=== PATIENT | female | born 1955 | race Caucasian/White ===

== ENCOUNTER → 2017-11-18 11:19 | Outpatient (CLI) | payer BC, SELFPAY ==
[2017-11-18 12:05] LABS: Absolute Lymphocyte Count 1.39 X10^3/ul (0.83-4.51); Absolute Neutrophil Count 2.9 X10^3/uL (2.0-7.7); Basophil# 0.04 X10^3/uL; Basophil% 0.8 % (0-1); Eosinophil# 0.15 X10^3/uL; Hematocrit 38.2 % (37-47); Hemoglobin 12.1 g/dl (12.0-15.0); Lymphocyte # 1.39 X10^3/ul (4.0); Lymphocyte % 27.8 % (19-41); Mean Corp Hgb Conc 31.7 g/gl (32-36); Mean Corpuscular Hgb 28.5 pg (27.0-32.0); Mean Corpuscular Volume 89.9 fL (81-99); Mean Platelet Vol. 9.6 fl (6.2-12.0); Monocyte# 0.56 X10^3/uL; Monocyte% 11.2 % (0-10); Neutrophil # 2.85 X10^3/uL (2.7-7.7); Platelet Count 421 K/mm3 (150-450); RBC Distribution Width SD 48.3 fl (35.1-43.9); Red Blood Count 4.25 M/mm3 (4.2-5.4)
[2017-11-18 12:08] LABS: POSITIVE COUNT NO; POSITIVE DIFFERENTIAL NO; POSITIVE MORPHOLOGY NO
[2017-11-18 12:44] LABS: Vitamin D,25 Hydroxy 51.8 ng/mL (29.95-100.01)
[2017-11-18 12:57] LABS: ALB/GLOB Ratio 0.9 RATIO (0.9-2.4); AST(SGOT) 22 U/L (15-37); Alanine Aminotransfer ALT/SGPT 26 U/L (13-56); Albumin, Serum 3.6 g/dL (3.2-5.0); Alkaline Phosphatase 136 U/L (45-117); Anion Gap 8 (5-15); BUN 17 mg/dL (7-18); BUN/Creat Ratio 22.7 RATIO (10-20); Calcium,Total 8.7 mg/dL (8.5-10.1); Chloride 109 mmol/L (98-107); Creatinine, Serum 0.75 mg/dL (0.55-1.02); EST Glomerular Filtration Rate 84 mL/min (>60); Est Glom Filt Rate - Afr Amer 101 mL/min (>60); Globulin 4.1 g/dL (2.2-4.2); Glucose 47 mg/dL (74-106); Potassium 4.2 mmol/L (3.5-5.1); Protein, Total 7.7 g/dL (6.4-8.2); Sodium Level 143 mmol/L (136-145); Thyroid Stim Hormone (TSH) 2.59 uIU/mL (0.358-3.74)
[2017-11-19 14:24] LABS: Hep C Antibodies 0.1 s/co ratio (0.0-0.9)
== END ==
PROVIDERS: Family Provider Family Medicine Geriatric Medicine; PCP Family Medicine Geriatric Medicine; Visit Provider Family Medicine Geriatric Medicine
DX: Z13.89 Encounter for screening for other disorder (principal)
CPT/HCPCS: 36415; 80053; 82306; 84443; 85025; 86803

== ENCOUNTER → 2017-12-26 13:24 | Outpatient (CLI) | payer BC, SELFPAY ==
[2017-12-31 09:03] LABS: HPV Reflexed? NOT INDICATED
== END ==
PROVIDERS: Visit Provider Obstetrics & Gynecology
DX: Z01.419 Encounter for gynecological examination (general) (routine) without abnormal findings (principal)
CPT/HCPCS: 88175; G0145

== ENCOUNTER → 2018-12-18 15:18 | Outpatient (CLI) | payer OTHER, SELFPAY ==
[2017-08-14 10:25] VITALS: BMI 26.2
[2018-12-18 17:43] LABS: Absolute Lymphocyte Count 2.08 X10^3/ul (0.83-4.51); Absolute Neutrophil Count 4.6 X10^3/uL (2.0-7.7); Basophil# 0.04 X10^3/uL; Basophil% 0.5 % (0-1); Eosinophil# 0.12 X10^3/uL; Eosinophils% 1.5 % (0-5); Hematocrit 37.9 % (37-47); Hemoglobin 11.8 g/dl (12.0-15.0); Lymphocyte # 2.08 X10^3/ul (4.0); Lymphocyte % 26.2 % (19-41); Mean Corp Hgb Conc 31.1 g/gl (32-36); Mean Corpuscular Hgb 25.9 pg (27.0-32.0); Mean Corpuscular Volume 83.1 fL (81-99); Mean Platelet Vol. 9.7 fl (6.2-12.0); Monocyte# 1.05 X10^3/uL; Monocyte% 13.2 % (0-10); Neutrophil # 4.63 X10^3/uL (2.7-7.7); Neutrophil % 58.2 % (47-70); Platelet Count 415 K/mm3 (150-450); RBC Distribution Width CV 17.7 % (11.6-14.6); RBC Distribution Width SD 54.1 fl (35.1-43.9); Red Blood Count 4.56 M/mm3 (4.2-5.4)
[2018-12-18 18:02] LABS: POSITIVE COUNT NO; POSITIVE DIFFERENTIAL NO; POSITIVE MORPHOLOGY NO
[2018-12-18 18:13] LABS: Vitamin D,25 Hydroxy 37.3 ng/mL (29.95-100.01)
[2018-12-18 18:31] LABS: AST(SGOT) 26 U/L (15-37); Alanine Aminotransfer ALT/SGPT 35 U/L (13-56); Albumin, Serum 3.8 g/dL (3.2-5.0); Alkaline Phosphatase 146 U/L (45-117); Anion Gap 7 (5-15); BUN 17 mg/dL (7-18); BUN/Creat Ratio 18.8 RATIO (10-20); Chloride 109 mmol/L (98-107); EST Glomerular Filtration Rate 67 mL/min (>60); Est Glom Filt Rate - Afr Amer 81 mL/min (>60); Glucose 70 mg/dL (74-106); Potassium 5.2 mmol/L (3.5-5.1); Protein, Total 7.8 g/dL (6.4-8.2); Sodium Level 142 mmol/L (136-145)
== END ==
PROVIDERS: Family Provider Family Medicine Geriatric Medicine; PCP Family Medicine Geriatric Medicine; Visit Provider Family Medicine Geriatric Medicine
DX: E55.9 Vitamin D deficiency, unspecified (principal); R53.83 Other fatigue
CPT/HCPCS: 36415; 80053; 82306; 84443; 85025

== ENCOUNTER → 2019-04-10 11:32 | Outpatient (CLI) | payer OTHER, SELFPAY ==
--- NOTE | 2019-04-10 11:55 | EKG12_ITS ---
Test Reason : PRE-OP Blood Pressure : / mmHG Vent. Rate : 079 BPM Atrial Rate : 079 BPM P-R Int : 172 ms QRS Dur : 080 ms QT Int : 396 ms P-R-T Axes : 064 012 -06 degrees QTc Int : 454 ms Normal sinus rhythm Nonspecific ST abnormality Abnormal ECG Confirmed by ARSLAN BERMEO, LUCIEN ([id number]), business editor TONO SANABRIA ([id number]) on 04/13/2019 12:00:14 PM Referred By: Thanh Chong Confirmed By:LUCIEN MCDANIELS MD
[2019-04-10 12:42] LABS: Absolute Lymphocyte Count 1.36 X10^3/uL (0.83-4.51); Absolute Neutrophil Count 5.4 X10^3/uL (2.0-7.7); Basophil# 0.06 X10^3/uL; Basophil% 0.8 % (0-1); Eosinophils% 1.3 % (0-5); Hematocrit 41.7 % (37-47); Hemoglobin 13.2 g/dL (12.0-15.0); Lymphocyte # 1.36 X10^3/ul (4.0); Lymphocyte % 17.9 % (19-41); Mean Corp Hgb Conc 31.7 g/dL (32-36); Mean Corpuscular Hgb 27.9 pg (27.0-32.0); Mean Corpuscular Volume 88.2 fL (81-99); Mean Platelet Vol. 9.6 fl (6.2-12.0); Monocyte# 0.66 X10^3/uL; Monocyte% 8.7 % (0-10); NRBC Flagged by Analyzer 0 % (0-5); Neutrophil # 5.38 X10^3/uL (2.7-7.7); Neutrophil % 70.9 % (47-70); Platelet Count 336 K/mm3 (150-450); RBC Distribution Width CV 15.7 % (11.6-14.6); RBC Distribution Width SD 50.9 fl (35.1-43.9); Red Blood Count 4.73 M/mm3 (4.2-5.4); White Blood Count 7.6 K/mm3 (4.4-11.0)
[2019-04-10 13:16] LABS: Anion Gap 8 (5-15); BUN 15 mg/dL (7-18); BUN/Creat Ratio 19.7 RATIO (10-20); Calcium,Total 8.9 mg/dL (8.5-10.1); Chloride 112 mmol/L (98-107); Creatinine, Serum 0.76 mg/dL (0.55-1.02); EST Glomerular Filtration Rate 82 mL/min (>60); Est Glom Filt Rate - Afr Amer 99 mL/min (>60); Glucose 85 mg/dL (74-106); Potassium 4.4 mmol/L (3.5-5.1); Sodium Level 143 mmol/L (136-145)
== END ==
PROVIDERS: Family Provider Family Medicine Geriatric Medicine; PCP Family Medicine Geriatric Medicine; Referring Provider Specialist; Visit Provider Specialist
DX: Z01.818 Encounter for other preprocedural examination (principal); Z01.810 Encounter for preprocedural cardiovascular examination
CPT/HCPCS: 36415; 80048; 85025; 93005

== ENCOUNTER 2019-06-25 10:00 | Outpatient (RCR) | payer OTHER, SELFPAY ==
--- NOTE | 2019-06-10 09:56 | HP.OTEVAL ---
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 Date of Evaluation: 05/25/19 Occupational Therapist: Devorah Martinez, JOSE/Terrance, CHT - Subjective Subjective: This 63 year old female was. sx was completed on 04/24/19 pt had left CMC arthroplasty completed 4 weeks 3 days sx post. pt returns to dr. Irizarry . Pt states she is unable to perform her ADLs and IADLS at her PLOF and would like to return to being Ind. with ADLs and IADLs - ADLs Dressing: Pants, Socks, Shoes Fasteners: Tie shoes, Buttons, Zippers, [place] Comments: is helping with ADLs Eating: Use silverware Bathing: Handle washcloth & soap, Wash hair, Squeeze shampoo bottle Toileting: Manage clothing Grooming: Curling iron, Comb hair, Squeeze toothpaste on Kitchen: Chop with knife, Peel fruits & vegetables, Open jars, Open bottle caps, Take dish out of oven, Load/unload jalousies installer, Place dish in microwave Comments: is assisting with tasks Household: Vacuum, Laundry Comments: is hleping - Pain left hand 0 Pain Intensity Range: 0, 9 - ROM Wrist: right 60/60 left 60/35 CMC: right 20 left 15 MP: right 20 left 20 IP: right 40 left 40 Radial Abduction: right 30 left 40 - Strength Human Resources Hr Generalist: right 63# left NT Lateral Pinch: right NT left NT Strength Comments: pinch was not tested due - Sensation Sensation Comments: denies - Quick DASH-Disab of Arm,Shoulder& Hand Quick DASH Score: 72.7250 - Goals Goal:100% adherence to protocol: Yes Comment: CMC arthroplasty Goal:Daily scar massage when approriate: Yes Goal:ROM equal to unaffected hand: Yes Goal:Human Resources Hr Generalist/Pinch strength at least 75% of unaffected hand: Yes Goal:No pain with affected hand use: Yes Goal:Full use of affected hand in daily activities including: Yes Goal:Improvement in sensation documented by Gove-Rimma: Yes Goal:Decrease scar hypersensitivity: Yes - Rehabilitation General Assessment: pt s/p left CMC arthroplasty. pt is demonstrating a decrease in left hand use with ADls and IADLS due to limited ROM, strength and pain. Pt would benefit from skilled OT services 1-2 xweek for 6 weeks to return pt to PLOF with her ADLS and IADls. Today therapsit so. custom orthosis for left cmc - to provide support and protection while pt is healing. Therapist ed. pt on use, care and precautions. Therapist ed. pt on edema control, ROM and supported CMC with MP and IP ROM. Pt demonstrated understanding and agree to POC. Rehabilitation Potential: Good - Anticipated Interventions Anticipated Interventions: A/AAROM/PROM, Strengthening, Triggerpoint Release, Desensitization, Modalities, Orthoses, Joint Protection/Energy Conservation - Visit Plan Frequency: 1-2x /Week Duration: 2 Months General Plan: follow CMC protocol at pt tolerates TEXT: Thank you for the opportunity to evaluate your patient. For Medicare and Medicare HMO plans, please review the plan of care and approve it. It will need to be FAXED BACK to us at [phone] for Medicare purposes. Please let me know if there are questions or concerns regarding this plan of care. Physician Signature: Date:
--- NOTE | 2019-10-05 16:19 | HP.OT.NRP ---
HP - Discharge Summary - Patient Information SELVIN ARRINGTON was seen in my office for initial evaluation on 05/25/19. The following Plan of Care was established for this patient: Initial Frequency: 1-2x /Week Initial Duration: 2 Months Plan: return in two weeks - Anticipated Interventions Anticipated Interventions: A/AAROM/PROM, Strengthening, Triggerpoint Release, Desensitization, Modalities, Orthoses, Joint Protection/Energy Conservation This patient was last seen in our office 06/25/19. Pertinent comments regarding their Occupational therapy will appear below: pt was seen for 2 visits. pt cancelled her last scheduled apt and has not reschedled at this time. Pt d/c due to time lapse in care. At this point I will be discontinuing this patient from occupational therapy. I would be happy to see this patient again in the future if found appropriate by the physician. Thank you! Devorah Martinez, OTR/L, CHT
== END 2019-06-25 19:00 | disposition home or self-care (01) ==
LOC: OT 10:00
PROVIDERS: Family Provider Family Medicine Geriatric Medicine; PCP Family Medicine Geriatric Medicine; Referring Provider Physician Assistant Surgical; Visit Provider Physician Assistant Surgical
DX: M18.12 Unilateral primary osteoarthritis of first carpometacarpal joint, left hand (principal)
CPT/HCPCS: 97110; 97166; 97760

== ENCOUNTER → 2019-12-21 15:46 | Outpatient (CLI) | payer OTHER, SELFPAY ==
[2017-08-14 10:25] VITALS: BMI 26.2
[2019-12-21 16:22] LABS: Absolute Lymphocyte Count 1.61 X10^3/uL (0.83-4.51); Absolute Neutrophil Count 5.1 X10^3/uL (2.0-7.7); Basophil# 0.06 X10^3/uL; Basophil% 0.8 % (0-1); Eosinophil# 0.11 X10^3/uL; Eosinophils% 1.4 % (0-5); Hematocrit 42.9 % (37-47); Hemoglobin 13.9 g/dL (12.0-15.0); Lymphocyte # 1.61 X10^3/ul (4.0); Lymphocyte % 20.4 % (19-41); Mean Corp Hgb Conc 32.4 g/dL (32-36); Mean Corpuscular Hgb 29.3 pg (27.0-32.0); Mean Corpuscular Volume 90.5 fL (81-99); Mean Platelet Vol. 9.4 fl (6.2-12.0); Monocyte# 0.95 X10^3/uL; NRBC Flagged by Analyzer 0 % (0-5); Neutrophil # 5.14 X10^3/uL (2.7-7.7); Platelet Count 342 K/mm3 (150-450); RBC Distribution Width SD 49.9 fl (35.1-43.9); Red Blood Count 4.74 M/mm3 (4.2-5.4); White Blood Count 7.9 K/mm3 (4.4-11.0)
[2019-12-21 16:44] LABS: Vitamin D,25 Hydroxy 52.7 ng/mL
[2019-12-21 16:51] LABS: ALB/GLOB Ratio 0.9 RATIO (0.9-2.4); AST(SGOT) 27 U/L (15-37); Alanine Aminotransfer ALT/SGPT 35 U/L (13-56); Albumin, Serum 3.7 g/dL (3.2-5.0); Alkaline Phosphatase 159 U/L (45-117); Anion Gap 7 (5-15); BUN 14 mg/dL (7-18); BUN/Creat Ratio 17.2 RATIO (10-20); Calcium,Total 8.9 mg/dL (8.5-10.1); Chloride 111 mmol/L (98-107); Creatinine, Serum 0.82 mg/dL (0.55-1.02); EST Glomerular Filtration Rate 75 mL/min (>60); Est Glom Filt Rate - Afr Amer 91 mL/min (>60); Globulin 4.2 g/dL (2.2-4.2); Glucose 90 mg/dL (74-106); Potassium 4.5 mmol/L (3.5-5.1); Protein, Total 7.9 g/dL (6.4-8.2); Sodium Level 139 mmol/L (136-145); Thyroid Stim Hormone (TSH) 2.36 uIU/mL (0.358-3.74)
== END ==
PROVIDERS: PCP Family Medicine Geriatric Medicine; Visit Provider Family Medicine Geriatric Medicine
DX: E55.9 Vitamin D deficiency, unspecified (principal); R53.83 Other fatigue
CPT/HCPCS: 36415; 80053; 82306; 84443; 85025

== ENCOUNTER 2020-10-28 08:03 | Outpatient (RCR) | payer OTHER, SELFPAY ==
[2017-08-14 10:25] VITALS: BMI 26.2
[2020-10-28] MEDS: COVID-19 VACC, MRNA(PFIZER)/PF 30 MCG/0.3 ML SYRINGE IM (16:23)
[2020-11-18] MEDS: COVID-19 VACC, MRNA(PFIZER)/PF 30 MCG/0.3 ML SYRINGE IM (16:01)
== END 2021-01-24 23:59 ==
LOC: IMMUN 08:03
PROVIDERS: PCP Family Medicine Geriatric Medicine; Visit Provider Family Medicine
DX: Z23 Encounter for immunization (principal)
CPT/HCPCS: 0001A; 0002A; 91300

== ENCOUNTER → 2022-01-10 | Outpatient (CLI) | payer MEDICARE, OTHER, SELFPAY ==
[2022-01-10 16:31] LABS: Absolute Lymphocyte Count 1.38 X10^3/uL (0.83-4.51); Absolute Neutrophil Count 4.8 X10^3/uL (2.0-7.7); Basophil# 0.06 X10^3/uL; Basophil% 0.8 % (0-1); Eosinophil# 0.11 X10^3/uL; Eosinophils% 1.5 % (0-5); Hematocrit 38.4 % (37-47); Hemoglobin 12.4 g/dL (12.0-15.0); Lymphocyte # 1.38 X10^3/ul (0.83-4.51); Lymphocyte % 19.4 % (19-41); Mean Corp Hgb Conc 32.3 g/dL (32-36); Mean Corpuscular Hgb 28.2 pg (27.0-32.0); Mean Corpuscular Volume 87.5 fL (81-99); Mean Platelet Vol. 9.4 fl (6.2-12.0); Monocyte# 0.72 X10^3/uL; Monocyte% 10.1 % (0-10); NRBC Flagged by Analyzer 0 % (0-5); Neutrophil # 4.84 X10^3/uL (2.7-7.7); Neutrophil % 67.9 % (47-70); Platelet Count 346 K/mm3 (150-450); RBC Distribution Width CV 14.3 % (11.6-14.6); RBC Distribution Width SD 45.8 fl (35.1-43.9); Red Blood Count 4.39 M/mm3 (4.2-5.4); White Blood Count 7.1 K/mm3 (4.4-11.0)
[2022-01-10 17:03] LABS: AST(SGOT) 22 U/L (15-37); Alanine Aminotransfer ALT/SGPT 38 U/L (13-56); Albumin, Serum 3.7 g/dL (3.2-5.0); Alkaline Phosphatase 130 U/L (45-117); Anion Gap 5 (5-15); BUN 18 mg/dL (7-18); Calcium,Total 9.1 mg/dL (8.5-10.1); Chloride 108 mmol/L (98-107); Creatinine, Serum 0.78 mg/dL (0.55-1.02); EST Glomerular Filtration Rate 78 mL/min (>60); Est Glom Filt Rate - Afr Amer 95 mL/min (>60); Globulin 3.8 g/dL (2.2-4.2); Glucose 107 mg/dL (74-106); Potassium 4.8 mmol/L (3.5-5.1); Protein, Total 7.5 g/dL (6.4-8.2); Sodium Level 138 mmol/L (136-145)
== END | disposition home or self-care (01) ==
LOC: BIMLAB 16:09
PROVIDERS: PCP Internal Medicine; Referring Provider Internal Medicine; Visit Provider Internal Medicine
DX: K21.9 Gastro-esophageal reflux disease without esophagitis (principal); F41.8 Other specified anxiety disorders
CPT/HCPCS: 36415; 80053; 85025

== ENCOUNTER → 2022-01-30 | Outpatient (CLI) | payer MEDICARE, OTHER, SELFPAY ==
--- NOTE | 2022-01-30 15:59 | BI_ITS ---
MAMMOGRAPHY - BILATERAL SCREENING REASON FOR EXAM: Female, 66 years old. Routine annual screening examination. PERTINENT HISTORY: Non-contributory. Remote right ultrasound-guided breast biopsy. TECHNIQUE: Digital bilateral breast mahi (3D mammographic acquisition) in the CC and MLO projections. 2-D mediolateral oblique (MLO) and craniocaudad (CC) views of both breasts were obtained. CAD: Full Field Digital Mammography with Computer Added Detection was performed. COMPARISON: Comparison is made with prior study dated 12/06/2016 and 04/21/2014. FINDINGS: Breast Composition: The breasts are heterogeneously dense, which may obscure small masses. There is a 2.6 cm x 3.2 cm well-defined nodule in the upper mid slightly medial aspect of the right breast. A tissue clip marker is seen within it. This has decreased slightly in size as compared to prior study. No other significant abnormalities are identified. There has been no significant change since the prior study. BI/SCRN MAMM (CAD)W/MAHI BILAT IMPRESSION: Stable bilateral screening mammogram. Yearly follow-up mammogram recommended. (A) ASSESSMENT CATEGORY: BIRADS Category 2: Benign. A letter regarding these results will be sent to the patient by the facility within 30 days. Approximately 10% of breast cancers are not detected by mammography. A normal mammogram should not delay biopsy of a clinically suspicious abnormality. [id number] Electronically Signed: Tony Castillo MD at 8:08 EDT ,
--- NOTE | 2022-01-30 16:04 | BD_ITS ---
STUDY: DUAL ENERGY X-RAY ABSORPTIOMETRY / DXA REASON FOR EXAM: Female, 66 years old. Osteopenia TECHNIQUE: Bone Mineral Density (BMD) measurements of lumbar spine and bilateral hips were obtained. COMPARISON: Comparison is made with prior study dated 12/06/2016. FINDINGS: Lumbar Spine (L1-L4): g/cm2 (0.777) / T-score (-2.9) / Z-score (-1.1) Findings are suggestive of osteoporosis with a high fracture risk. Left Femur Total: g/cm2 (0.754) / T-score (-1.5) / Z-score (-0.3) Left Femoral Neck: g/cm2 (0.566) / T-score (-2.6) / Z-score (-1.0) Right Femur Total: g/cm2 (0.708) / T-score (-1.9) / Z-score (-0.7) Right Femoral Neck: g/cm2 (0.588) / T-score (-2.3) / Z-score (-0.8) The T-Scores on the most recent prior examination were: Lumbar Spine (L1-L4): There has been worsening of bone density since the previous examination. Left Femur Total: which represents an improvement of 5.9%. Right Femur Total: which represents an improvement of 4.2%. BD/Dexa Bone Density Study IMPRESSION: The patient is considered osteoporotic as outlined below according to World Ector Organization (WHO) criteria with a high fracture risk. There has been improvement of bone density since the previous examination. Reference Information: The T-score is the number of standard deviations above or below the standard which is normal for young adults at their peak bone mineral density. The World Health Organization (WHO) interprets the T-scores as follows: Above -1 Normal bone density Between -1 and -2.5 Osteopenia Equal to / or below -2.5 Osteoporosis As a practical clinical guideline, osteopenia may be graded as follows: Mild -1 through -1.5 Moderate -1.6 through -2.0 Severe -2.1 through -2.4 The Z-score is the number of standard deviations above or below age-matched controls. A Z-score of less than -1.5 would be considered abnormal. References: 1. NIH Osteoporosis and Related Bone Diseases www osteo.org 2. International Society for Clinical Densitometry www iscd.org 3. National Osteoporosis Foundation www nof.org Electronically Signed: Tony Castillo MD at 10:37 EDT ,
== END | disposition home or self-care (01) ==
LOC: OPBD 15:58
PROVIDERS: PCP Internal Medicine; Visit Provider Internal Medicine
DX: Z78.0 Asymptomatic menopausal state (principal); M85.80 Other specified disorders of bone density and structure, unspecified site; Z12.31 Encounter for screening mammogram for malignant neoplasm of breast
CPT/HCPCS: 77063; 77067; 77080

== ENCOUNTER → 2022-03-02 | Outpatient (CLI) | payer MEDICARE, OTHER, SELFPAY ==
[2022-03-02] MEDS: 0.9% NaCl IVPB Med Flush (250 mL) 15 ML IV (13:52)
[2022-03-02] MEDS: 0.9% NaCl Peripheral Flush Adult/Peds IV (13:52)
[2022-03-02] MEDS: Zoledronic Acid 5 MG 100 ML 300 MG IV (13:53)
[2022-03-02 14:00] VITALS: BP 117/83; PULSE 79; RESP 16; TEMP 36.7; O2SAT 92
== END | disposition home or self-care (01) ==
PROVIDERS: PCP Internal Medicine; Referring Provider Internal Medicine; Visit Provider Internal Medicine
DX: M81.0 Age-related osteoporosis without current pathological fracture (principal)
CPT/HCPCS: 96365; J7050; A4216; J3489

== ENCOUNTER 2022-05-24 08:44 | Day surgery (SDC) | payer MEDICARE, OTHER, SELFPAY ==
[2022-05-24] VITALS (7 sets, daily range): BP systolic 103–121; BP diastolic 63–80; PULSE 91–100; RESP 16–18; TEMP 36.7–37.2; O2SAT 99–100; BMI 34.7
--- NOTE | 2022-05-24 | ESO_PTH ---
PATIENT: SELVIN ARRINGTON LOC: EN U#:[id number] AGE/SX: 66/F ROOM: RE05/24/[address]: Dr. Dillan Gracia DO : 1955 BED: DIS: 05/24/2022 SPEC #: [id number] RECD: 05/24/22 12:50 STATUS: THERESE RELaureano #: [id number] FIDEL: 05/24/22 00:[address]: Dillan Gracia DEPT: SURGICAL PATHOLOGY RECD BY: Flako Mckee ENTERED: 05/24/22 12:51 SP TYPE: ZELDA DAMON DR: Dr. Alma Rosa Coto MD Tissues: A - Esophagus, NOS B - Gastric mucous membrane C - Ileum, NOS Procedures: Surgery Specimen Level IV HEADER OPERATION: Colonoscopy with biopsy, EGD with biopsy ([facility] [place]) PRE-OP DIAGNOSIS: GERD, positive colorectal cancer screening TISSUE SUBMITTED: A ? Distal esophagus, B ? Anastomosis, C ? Terminal ileum MICROSCOPIC DIAGNOSIS A. Distal esophagus, biopsy: Fragments of benign squamous mucosa. B. Anastomotic site, biopsy: Mild glandular distortion. No evidence of inflammation. C. Terminal ileum, biopsy: No pathologic change. AM:nikolai 05/25/2022 MICROSCOPIC DESCRIPTION Slides are reviewed. GROSS DESCRIPTION A - Received in fixative is one container labeled with the patient's name and designated distal esophagus. The specimen consists of two irregular fragments of light barrow soft tissue that in aggregate measure 0.6 x 0.4 x 0.1 cm. The specimen is totally submitted in one cassette. B - Received in fixative is one container labeled with the patient's name and designated anastomosis. The specimen consists of two irregular fragments of light barrow soft tissue that in aggregate measure 0.8 x 0.4 x 0.1 cm. The specimen is totally submitted in one cassette. C - Received in fixative is one container labeled with the patient's name and designated terminal ileum. The specimen consists of one irregular fragment of light barrow soft tissue that measures 0.5 x 0.4 x 0.1 cm. The specimen is totally submitted in one cassette. / MARGE:nikolai 05/24/2022 TC:5 CPT: 25027 x3
[2022-05-24] MEDS: Lactated Ringers 1,000 ML 15 ML IV (09:10)
--- NOTE | 2022-05-24 09:14 | HP.PCM_ITS ---
History and Physical Date of Admission: 05/24/22 SELVIN ARRINGTON, is a 66 F who presents to the office today for GERD and positive Cologuard GERD --on his tree of GERD.? She takes omeprazole 20 mg daily for GERD, reports it is effective. She gets nausea if GERD isn't controlled, no heartburn. Denies needing any meds in addition to omeprazole. Remote hx of EGD. No hx of Mann's. Occas difficult to swallow a pill, but no problems with food.? No vomiting.? Denies abdominal pain. Constipation -- takes psyllium husk daily, occas mag citrate or senna/docusate.? She reports a lifelong history of constipation.? This has persisted even after gastric bypass surgery.? The last 2 times she had colonoscopies she was told her prep was not sufficient, therefore she is not been keen to have another colonoscopy.? She did recently have a positive Cologuard test.? Denies melena or hematochezia. Past medical history: Gastric bypass status, kidney stones, seasonal allergies, osteoporosis, osteoarthritis, depression with anxiety Past surgical history: Carpal tunnel repair, gastric bypass, tubal ligation, cholecystectomy ROS Const Constitutional: No fatigue ENT ENT: No difficulty swallowing Cardio Cardiology: Positive for leg pain with exertion Gastro GI: Positive for constipation; No abdominal pain, belching, bloating, change in bowel habits, change in stool character, coffee ground emesis, cramping, diarrhea, heartburn, difficulty swallowing, feeling full early, excessive flatus, incontinent of stools, Vomiting blood/hematemesis, Blood in stool, loose stools, Black,tarry stools, nausea/dyspepsia, pain with swallowing, vomiting or other Musc Musculoskeletal: Positive for joint pain, stiffness, Arthritis, restless legs and leg pain with exertion Skin Skin: No yellowing of the eye or itchy eyes Neuro Neurology: Positive for restless legs Psych Psychiatric: No anxiety and No depression Endo Endocrine: No fatigue Aller/Imm Allergy/Immunologic: No itchy eyes Shawn/Lymp Hematologic/Lymphatic: No easy bleeding or easy bruising Exam Const General: cooperative, comfortable and well developed Quality Reporting Tobacco Screening ([facility] 138) Smoking Status: Former smoker Assessment and Plan Assessment and Plan (1) GERD (gastroesophageal reflux disease): ?Status:?Acute ?Qualifiers: ?Esophagitis presence:?esophagitis presence not specified? Qualified Code(s):?K21.9 - Gastro-esophageal reflux disease without esophagitis ?Plan: Long history of GERD managed with omeprazole 20 mg daily.? History of gastric bypass surgery.? Positive Cologuard test.? We will schedule her for EGD to evaluate for Mann's esophagus, screening colonoscopy.? Follow-up 2 weeks after endoscopies for discussion of biopsy results. (2) Positive colorectal cancer screening using DNA-based stool test: ?Status:?Acute Coding Level of Care Code Off vis,new,level 3 Diagnoses GERD (gastroesophageal reflux disease)? K21.9 ? ? ? Esophagitis presence: esophagitis presence not specified Positive colorectal cancer screening using DNA-based stool test? R19.5 I have re-examined the patient. There are no clinical changes since date of exam.
--- NOTE | 2022-05-24 10:36 | OP.CCLET_ITS ---
05/24/2022 Alma Rosa Coto Md Re : Upper GI endoscopy procedure for Miranda Kiran [place] This procedure was performed on May. My impressions and recommendations are as follows: Impressions : - Z-line irregular, 39 cm from the incisors. Biopsied. - Maurice-en-Y gastrojejunostomy with gastrojejunal anastomosis characterized by ulceration. Recommendations : - Discharge patient to home. - Resume previous diet. - Continue present medications. - Await pathology results. My findings are described in the full procedure note, which is enclosed. If I can be of further assistance, please feel free to contact me at . Sincerely, Dillan Gracia, 05/24/2022 10:36:31 AM This report has been signed electronically.
--- NOTE | 2022-05-24 10:36 | OP.EGD_ITS ---
Patient Name: Miranda Kiran Procedure Date: 05/24/2022 9:36 AM Date of : 1955 Age: 66 Procedure: Upper GI endoscopy Indications: Suspected esophageal reflux Providers: Dillan Gracia DO Medicines: Monitored Anesthesia Care Patient Profile: This is a 66 year old female. Refer to note in patient chart for documentation of history and physical. Patient has symptoms of chronic heartburn. Complications: No immediate complications. Procedure: Pre-Anesthesia Assessment: - Prior to the procedure, a History and Physical was performed, and patient medications and allergies were reviewed. The risks and benefits of the procedure and the sedation options and risks were discussed with the patient. All questions were answered and informed consent was obtained. Patient identification and proposed procedure were verified by the physician in the pre-procedure area. Mental Status Examination: alert and oriented. Airway Examination: normal oropharyngeal airway and neck mobility. Respiratory Examination: clear to auscultation. CV Examination: normal. Prophylactic Antibiotics: The patient does not require prophylactic antibiotics. Prior Anticoagulants: The patient has taken no previous anticoagulant or antiplatelet agents. After reviewing the risks and benefits, the patient was deemed in satisfactory condition to undergo the procedure. The anesthesia plan was to use monitored anesthesia care (MAC). Immediately prior to administration of medications, the patient was re-assessed for adequacy to receive sedatives. The heart rate, respiratory rate, oxygen saturations, blood pressure, adequacy of pulmonary ventilation, and response to care were monitored throughout the procedure. The physical status of the patient was re-assessed after the procedure. After obtaining informed consent, the endoscope was passed under direct vision. Throughout the procedure, the patient's blood pressure, pulse, and oxygen saturations were monitored continuously. The pediatric colonoscope was introduced through the mouth, and advanced to the second part of duodenum. The upper GI endoscopy was accomplished without difficulty. The patient tolerated the procedure well. Scope In: 10:05:08 AM Scope Out: 10:13:35 AM Total Procedure Duration Time 0 hours 8 minutes 27 seconds Findings: The Z-line was irregular and was found 39 cm from the incisors. Biopsies were taken with a cold forceps for histology. Verification of patient identification for the specimen was done. Estimated blood loss was minimal. Evidence of a Maurice-en-Y gastrojejunostomy was found. The gastrojejunal anastomosis was characterized by ulceration. This was traversed. The nnxvs-vs-gqyikad limb was characterized by healthy appearing mucosa. The jejunojejunal anastomosis was characterized by healthy appearing mucosa. The xtltdwiw-uk-tlnmgvm limb was not examined as it could not be found. Impression: - Z-line irregular, 39 cm from the incisors. Biopsied. - Maurice-en-Y gastrojejunostomy with gastrojejunal anastomosis characterized by ulceration. Recommendation: - Discharge patient to home. - Resume previous diet. - Continue present medications. - Await pathology results. Procedure Code(s): --- Professional --- 42332, Esophagogastroduodenoscopy, flexible, transoral; with biopsy, single or multiple CPT copyright 2017 [employer]. All rights reserved. The codes documented in this report are preliminary and upon remote inpatient coder review may be revised to meet current compliance requirements. Dillan Gracia DO 05/24/2022 10:36:31 AM This report has been signed electronically. Number of Addenda: 0 Note Initiated On: 05/24/2022 9:36 AM
--- NOTE | 2022-05-24 10:39 | OP.COLON_ITS ---
Patient Name: Miranda Kiran Procedure Date: 05/24/2022 10:13 AM Date of : 1955 Age: 66 Procedure: Colonoscopy Indications: Screening for colorectal malignant neoplasm Providers: Dillan Gracia DO Medicines: Monitored Anesthesia Care Patient Profile: This is a 66 year old female. Refer to note in patient chart for documentation of history and physical. Patient has symptoms of chronic heartburn. Last Colonoscopy: 10 years ago. Complications: No immediate complications. Procedure: Pre-Anesthesia Assessment: - Prior to the procedure, a History and Physical was performed, and patient medications and allergies were reviewed. The risks and benefits of the procedure and the sedation options and risks were discussed with the patient. All questions were answered and informed consent was obtained. Patient identification and proposed procedure were verified by the physician in the pre-procedure area. Mental Status Examination: alert and oriented. Airway Examination: normal oropharyngeal airway and neck mobility. Respiratory Examination: clear to auscultation. CV Examination: normal. Prophylactic Antibiotics: The patient does not require prophylactic antibiotics. Prior Anticoagulants: The patient has taken no previous anticoagulant or antiplatelet agents. After reviewing the risks and benefits, the patient was deemed in satisfactory condition to undergo the procedure. The anesthesia plan was to use monitored anesthesia care (MAC). Immediately prior to administration of medications, the patient was re-assessed for adequacy to receive sedatives. The heart rate, respiratory rate, oxygen saturations, blood pressure, adequacy of pulmonary ventilation, and response to care were monitored throughout the procedure. The physical status of the patient was re-assessed after the procedure. After I obtained informed consent, the scope was passed under direct vision. Throughout the procedure, the patient's blood pressure, pulse, and oxygen saturations were monitored continuously. The pediatric colonoscope was introduced through the anus and advanced to the terminal ileum. The entire colon was examined. Scope In: 10:15:30 AM Scope Withdrawal Time 0 hours 9 minutes 52 seconds Scope Out: 10:31:21 AM Total Procedure Duration Time 0 hours 15 minutes 51 seconds Findings: The perianal and digital rectal examinations were normal. The recto-sigmoid colon was moderately redundant. No other significant abnormalities were identified in a careful examination of the remainder of the colon. Scattered inflammation, moderate in severity and characterized by friability and granularity was found [Site]. Biopsies were taken with a cold forceps for histology. Verification of patient identification for the specimen was done. Estimated blood loss was minimal. Impression: - Redundant colon. - Ileitis. Biopsied. Recommendation: - Discharge patient to home. - Resume previous diet. - Continue present medications. - Await pathology results. - Repeat colonoscopy in 5 years for surveillance. Procedure Code(s): --- Professional --- 68647, Colonoscopy, flexible; with biopsy, single or multiple CPT copyright 2017 [employer]. All rights reserved. The codes documented in this report are preliminary and upon rn stars review may be revised to meet current compliance requirements. Dillan Gracia DO 05/24/2022 10:39:14 AM This report has been signed electronically. Number of Addenda: 0 Note Initiated On: 05/24/2022 10:13 AM
--- NOTE | 2022-05-24 10:39 | OP.CCLET_ITS ---
05/24/2022 Alma Rosa Coto Md Re : Colonoscopy procedure for Miranda Kiran [place] This procedure was performed on May. My impressions and recommendations are as follows: Impressions : - Redundant colon. - Ileitis. Biopsied. Recommendations : - Discharge patient to home. - Resume previous diet. - Continue present medications. - Await pathology results. - Repeat colonoscopy in 5 years for surveillance. My findings are described in the full procedure note, which is enclosed. If I can be of further assistance, please feel free to contact me at . Sincerely, Dillan Gracia, 05/24/2022 10:39:14 AM This report has been signed electronically.
== END 2022-05-24 11:18 | disposition home or self-care (01) ==
LOC: EN 08:44 → AC 08:45
PROVIDERS: PCP Internal Medicine; Referring Provider Internal Medicine; Visit Provider Internal Medicine Gastroenterology
PROC: 0DJD8ZZ Inspection of Lower Intestinal Tract, Via Natural or Artificial Opening Endoscopic (ICD-10-PCS; CPT 45378; principal; 2022-05-24 09:40)
DX: Q43.8 Other specified congenital malformations of intestine (principal); F41.9 Anxiety disorder, unspecified; F32.A Depression, unspecified; K21.9 Gastro-esophageal reflux disease without esophagitis; Z79.899 Other long term (current) drug therapy; Z87.891 Personal history of nicotine dependence
CPT/HCPCS: 43239; 45380; 88305; J7120; J2405

== ENCOUNTER → 2023-02-21 | Outpatient (CLI) | payer MEDICARE, OTHER, SELFPAY | END | disposition home or self-care (01) | LOC: OPBD 13:34 | PROVIDERS: PCP Internal Medicine; Referring Provider Internal Medicine; Visit Provider Internal Medicine | DX: Z00.00 Encounter for general adult medical examination without abnormal findings (principal) ==

== ENCOUNTER → 2023-02-21 | Outpatient (CLI) | payer MEDICARE, OTHER, SELFPAY ==
--- NOTE | 2023-02-21 13:30 | BI_ITS ---
MAMMOGRAPHY - BILATERAL SCREENING REASON FOR EXAM: Female, 67 years old. Routine annual screening examination. PERTINENT HISTORY: Non-contributory. Prior right breast biopsy. TECHNIQUE: Digital bilateral breast mahi (3D mammographic acquisition) in the CC and MLO projections. 2-D mediolateral oblique (MLO) and craniocaudad (CC) views of both breasts were obtained. CAD: Full Field Digital Mammography with Computer Added Detection was performed. COMPARISON: Comparison is made with prior study dated 10/02/2021 and December 06, 2016. FINDINGS: Breast Composition: The breasts are heterogeneously dense, which may obscure small masses. Stable 2.6 cm x 3.2 cm well-defined nodule in the upper mid slightly medial aspect of the right breast. A tissue clip marker is seen within. No other significant abnormalities are identified. There has been no significant change since the prior study. BI/SCRN MAMM (CAD)W/MAHI BILAT IMPRESSION: Stable bilateral screening mammogram. Yearly follow-up mammogram recommended. (A) ASSESSMENT CATEGORY: BIRADS Category 2: Benign. A letter regarding these results will be sent to the patient by the facility within 30 days. Approximately 10% of breast cancers are not detected by mammography. A normal mammogram should not delay biopsy of a clinically suspicious abnormality. [id number] Electronically Signed: Tony Castillo MD at 15:10 EDT ,
== END | disposition home or self-care (01) ==
LOC: OPBI 13:28
PROVIDERS: PCP Internal Medicine; Referring Provider Internal Medicine; Visit Provider Internal Medicine
DX: Z12.31 Encounter for screening mammogram for malignant neoplasm of breast (principal)
CPT/HCPCS: 77063; 77067

== ENCOUNTER 2023-03-25 13:55 | Outpatient (CLI) | payer MEDICARE, OTHER, SELFPAY ==
[2023-03-25] MEDS: 0.9% NaCl Peripheral Flush Adult/Peds IV (14:04)
[2023-03-25] MEDS: Zoledronic Acid 5 MG 100 ML 300 MG IV (14:16)
[2023-03-25 14:19] VITALS: BP 127/75; PULSE 94; RESP 16; TEMP 36.3; O2SAT 96; BMI 34.7
[2023-03-25 14:44] VITALS: BP 116/49; PULSE 94; RESP 16; TEMP 36.1; O2SAT 96
== END 2023-03-25 13:56 | disposition home or self-care (01) ==
LOC: MEDOUTP 13:55
PROVIDERS: PCP Internal Medicine; Referring Provider Internal Medicine; Visit Provider Internal Medicine
DX: M81.0 Age-related osteoporosis without current pathological fracture (principal)
CPT/HCPCS: 96365; A4216; J3489

== ENCOUNTER → 2023-07-25 | Outpatient (CLI) | payer MEDICARE, OTHER, SELFPAY ==
[2023-07-25 12:24] LABS: Absolute Lymphocyte Count 1.11 X10^3/uL (0.83-4.51); Absolute Neutrophil Count 4.2 X10^3/uL (2.0-7.7); Basophil# 0.05 X10^3/uL; Basophil% 0.8 % (0-1); Eosinophil# 0.13 X10^3/uL; Eosinophils% 2.1 % (0-5); Hematocrit 41.1 % (37-47); Lymphocyte # 1.11 X10^3/ul (0.83-4.51); Lymphocyte % 18.1 % (19-41); Mean Corp Hgb Conc 31.6 g/dL (32-36); Mean Corpuscular Hgb 30.5 pg (27.0-32.0); Mean Corpuscular Volume 96.5 fL (81-99); Mean Platelet Vol. 9.4 fl (6.2-12.0); Monocyte# 0.59 X10^3/uL; Monocyte% 9.6 % (0-10); NRBC Flagged by Analyzer 0 % (0-5); Neutrophil # 4.24 X10^3/uL (2.7-7.7); Neutrophil % 69.1 % (47-70); Platelet Count 317 K/mm3 (150-450); RBC Distribution Width CV 13.5 % (11.6-14.6); RBC Distribution Width SD 47.8 fl (35.1-43.9); Red Blood Count 4.26 M/mm3 (4.2-5.4); White Blood Count 6.1 K/mm3 (4.4-11.0)
[2023-07-25 13:19] LABS: AST(SGOT) 18 U/L (15-37); Alanine Aminotransfer ALT/SGPT 29 U/L (13-56); Albumin, Serum 3.5 g/dL (3.2-5.0); Alkaline Phosphatase 105 U/L (45-117); Anion Gap 2 (5-15); BUN 13 mg/dL (7-18); BUN/Creat Ratio 16.5 RATIO (10-20); Calcium,Total 8.7 mg/dL (8.5-10.1); Chloride 111 mmol/L (98-107); Cholesterol 195 mg/dL (200); Creatinine, Serum 0.79 mg/dL (0.55-1.02); EST Glomerular Filtration Rate 77 mL/min (>60); Est Glom Filt Rate - Afr Amer 93 mL/min (>60); Globulin 3.5 g/dL (2.2-4.2); Glucose 99 mg/dL (74-106); High Density Lipoprotein 74 mg/dL; Potassium 3.8 mmol/L (3.5-5.1); Sodium Level 141 mmol/L (136-145); Triglycerides 55 mg/dL; Very Low Density Lipoprotein 11 mg/dL (5-40)
== END | disposition home or self-care (01) ==
LOC: BIMLAB 10:22
PROVIDERS: PCP Internal Medicine; Visit Provider Internal Medicine
DX: K21.9 Gastro-esophageal reflux disease without esophagitis (principal); Z13.6 Encounter for screening for cardiovascular disorders
CPT/HCPCS: 36415; 80053; 80061; 85025

== ENCOUNTER → 2024-01-28 | Outpatient (CLI) | payer MEDICARE, OTHER, SELFPAY ==
[2024-01-28 15:58] LABS: Absolute Lymphocyte Count 1.23 X10^3/uL (0.83-4.51); Absolute Neutrophil Count 3.9 X10^3/uL (2.0-7.7); Basophil# 0.04 X10^3/uL; Basophil% 0.7 % (0-1); Eosinophil# 0.15 X10^3/uL; Eosinophils% 2.5 % (0-5); Hematocrit 40.8 % (37-47); Hemoglobin 13.1 g/dL (12.0-15.0); Lymphocyte # 1.23 X10^3/ul (0.83-4.51); Lymphocyte % 20.4 % (19-41); Mean Corp Hgb Conc 32.1 g/dL (32-36); Mean Corpuscular Hgb 30.6 pg (27.0-32.0); Mean Corpuscular Volume 95.3 fL (81-99); Mean Platelet Vol. 9.6 fl (6.2-12.0); Monocyte# 0.73 X10^3/uL; Monocyte% 12.1 % (0-10); NRBC Flagged by Analyzer 0 % (0-5); Neutrophil # 3.85 X10^3/uL (2.7-7.7); Platelet Count 311 K/mm3 (150-450); RBC Distribution Width CV 13.4 % (11.6-14.6); RBC Distribution Width SD 46.7 fl (35.1-43.9); Red Blood Count 4.28 M/mm3 (4.2-5.4)
[2024-01-28 16:10] LABS: Vitamin B12 321 pg/mL (211-911); Vitamin D,25 Hydroxy 67.5 ng/mL
[2024-01-28 16:38] LABS: ALB/GLOB Ratio 0.9 RATIO (0.9-2.4); AST(SGOT) 37 U/L (15-37); Alanine Aminotransfer ALT/SGPT 44 U/L (13-56); Albumin, Serum 3.4 g/dL (3.2-5.0); Alkaline Phosphatase 125 U/L (45-117); Anion Gap 5 (5-15); BUN 15 mg/dL (7-18); BUN/Creat Ratio 19.6 RATIO (10-20); Calcium,Total 8.8 mg/dL (8.5-10.1); Chloride 111 mmol/L (98-107); Creatinine, Serum 0.77 mg/dL (0.55-1.02); EST Glomerular Filtration Rate 80 mL/min (>60); Est Glom Filt Rate - Afr Amer 97 mL/min (>60); Globulin 3.7 g/dL (2.2-4.2); Glucose 58 mg/dL (74-106); Potassium 4.3 mmol/L (3.5-5.1); Protein, Total 7.1 g/dL (6.4-8.2); Sodium Level 139 mmol/L (136-145); Thyroid Stim Hormone (TSH) 2.63 uIU/mL (0.358-3.74)
== END | disposition home or self-care (01) ==
LOC: BIMLAB 13:33
PROVIDERS: PCP Internal Medicine; Visit Provider Internal Medicine
DX: E53.8 Deficiency of other specified B group vitamins (principal); R61 Generalized hyperhidrosis; F41.8 Other specified anxiety disorders; K21.9 Gastro-esophageal reflux disease without esophagitis; M81.0 Age-related osteoporosis without current pathological fracture
CPT/HCPCS: 36415; 80053; 82306; 82607; 84443; 85025

== ENCOUNTER → 2024-04-17 | Outpatient (CLI) | payer MEDICARE, OTHER, SELFPAY ==
--- NOTE | 2024-04-17 14:39 | BI_ITS ---
MAMMOGRAPHY - BILATERAL SCREENING REASON FOR EXAM: Female, 68 years old. Routine annual screening examination. PERTINENT HISTORY: Non-contributory. History of prior right needle biopsy. TECHNIQUE: Digital bilateral breast mahi (3D mammographic acquisition) in the CC and MLO projections. 2-D mediolateral oblique (MLO) and craniocaudad (CC) views of both breasts were obtained. CAD: Full Field Digital Mammography with Computer Added Detection was performed. COMPARISON: Comparison is made with prior study dated February 21, 2023. FINDINGS: Breast Composition: The breasts are heterogeneously dense, which may obscure small masses. Stable 2.6 x 3 cm well-defined nodule in the upper slightly medial aspect of the right breast. A tissue clip marker is seen within it in keeping with prior biopsy. No other significant abnormalities are identified. There has been no significant change since the prior study. BI/SCRN MAMM (CAD)W/MAHI BILAT IMPRESSION: Stable bilateral screening mammogram. Yearly follow-up mammogram recommended. (A) ASSESSMENT CATEGORY: BIRADS Category 2: Benign. A letter regarding these results will be sent to the patient by the facility within 30 days. Approximately 10% of breast cancers are not detected by mammography. A normal mammogram should not delay biopsy of a clinically suspicious abnormality. [id number] Electronically Signed: Tony Castillo MD at 15:15 EDT ,
== END | disposition home or self-care (01) ==
LOC: OPBI 14:38
PROVIDERS: PCP Internal Medicine; Referring Provider Internal Medicine; Visit Provider Internal Medicine
DX: Z12.31 Encounter for screening mammogram for malignant neoplasm of breast (principal)
CPT/HCPCS: 77063; 77067

== ENCOUNTER 2024-04-24 14:30 | Outpatient (CLI) | payer MEDICARE, OTHER, SELFPAY ==
[2024-04-24] MEDS: Zoledronic Acid 5 MG 100 ML 300 MG IV (14:44)
[2024-04-24] MEDS: 0.9% NaCl Peripheral Flush Adult/Peds IV (14:44)
[2024-04-24 14:47] VITALS: BP 143/74; PULSE 75; RESP 16; TEMP 35.7; O2SAT 92; BMI 34.7
[2024-04-24 15:10] VITALS: BP 115/69; PULSE 88; RESP 16; TEMP 35.6; O2SAT 92
== END 2024-04-24 23:59 | disposition home or self-care (01) ==
LOC: MEDOUTP 14:31
PROVIDERS: PCP Internal Medicine; Referring Provider Internal Medicine; Visit Provider Internal Medicine
DX: M81.0 Age-related osteoporosis without current pathological fracture (principal)
CPT/HCPCS: 96365; A4216; J3489

== ENCOUNTER → 2025-04-08 | Outpatient (CLI) | payer MEDICARE, OTHER, SELFPAY ==
--- NOTE | 2025-04-08 13:30 | BD_ITS ---
PROCEDURE: DEXA BONE DENSITY STUDY 04/08/2025 REASON FOR EXAM: FOLLOW UP F, age 69 y/o . Postmenopausal. TECHNIQUE: DEXA BONE DENSITY STUDY COMPARISON: Prior study dated January 30, 2022. FINDINGS: BMD and T-SCORES Lumbar spine: 0.782 g/cm2, T-score -2.9 Levels: L1 through L4 Change from prior: Improvement of 0.7%. Left femoral neck: 0.618 g/cm2, T-score -2.1 Femoral neck comparison data not recommended for monitoring change. Left total hip: 0.771 g/cm2, T-score -1.4 Change from prior: Improvement of 2.2%. Right femoral neck: 0.629 g/cm2, T-score -2.0 Femoral neck comparison data not recommended for monitoring change. Right total hip: 0.733 g/cm2, T-score -1.7 Change from prior: Improvement of 3.5%. Delay tat The World Health Organization has defined the following categories based on bone density: Normal bone density: T-score equal to or greater than -1.0 Osteopenia: T-score between -1.0 and -2.5 Osteoporosis: T-score equal to or less than -2.5 FRAX (or Comparable) Fracture Risk Assessment: 10 Year Probability of Fracture: Major Osteoporotic Fracture: 11% Hip Fracture: 1.9% (Note: FRAX is not to be reported in setting of normal range bone density, osteoporosis on DEXA, known history of osteoporosis, prior osteoporotic hip or vertebral fracture, or for any patient undergoing pharmacological treatment for bone loss.) The National Osteoporosis Foundation (NOF) recommends pharmacological treatment for patients with a FRAX 10-year risk of 3% or higher for a hip fracture, or 20% or higher for a major osteoporotic fracture, to prevent osteoporosis and reduce fracture risk. The patient does meet the pharmacological treatment recommendations for prevention of osteoporosis. BD/Dexa Bone Density Study IMPRESSION: OSTEOPOROSIS. Recommend follow-up as clinically warranted. Reading Location: [id number]
--- NOTE | 2025-04-08 13:36 | EKG12_ITS ---
Test Reason : PREOP Blood Pressure : */* mmHG Vent. Rate : 95 BPM Atrial Rate : 95 BPM P-R Int : 206 ms QRS Dur : 86 ms QT Int : 352 ms P-R-T Axes : 79 28 -32 degrees QTcB Int : 442 ms Normal sinus rhythm with sinus arrhythmia Possible Inferior infarct , age undetermined Abnormal ECG When compared with ECG of 10-Apr-2019 12:01, Borderline criteria for Inferior infarct are now Present Nonspecific T wave abnormality now evident in Anterior leads Confirmed by VILMA BERMEO, ANJELICA ([id number]), editor farm journal ANGELY GARCIA ([id number]) on 04/12/2025 6:33:27 AM Referred By: Alma Rosa Coto Confirmed By: ANJELICA ESPARZA MD
== END | disposition home or self-care (01) ==
LOC: OPBD 13:19
PROVIDERS: PCP Internal Medicine; Referring Provider Internal Medicine; Visit Provider Internal Medicine
DX: M81.0 Age-related osteoporosis without current pathological fracture (principal); Z79.899 Other long term (current) drug therapy
CPT/HCPCS: 77080; 93005

== ENCOUNTER 2025-04-26 13:30 | Outpatient (CLI) | payer MEDICARE, OTHER, SELFPAY ==
[2025-04-26] MEDS: 0.9% NaCl IVPB Med Flush (100mL) 15 ML IV (13:47)
[2025-04-26] MEDS: 0.9% NaCl Peripheral Flush Adult IV (13:48)
[2025-04-26 13:49] VITALS: BP 121/80; PULSE 104; RESP 16; TEMP 36.1; O2SAT 99
[2025-04-26 14:20] VITALS: BP 97/65; PULSE 87; RESP 16; O2SAT 95
== END 2025-04-26 23:59 | disposition home or self-care (01) ==
LOC: MEDOUTP 13:31
PROVIDERS: PCP Internal Medicine; Referring Provider Internal Medicine; Visit Provider Internal Medicine
DX: M81.0 Age-related osteoporosis without current pathological fracture (principal)
CPT/HCPCS: 96365; A4216; J3489

== ENCOUNTER → 2025-05-11 | Outpatient (CLI) | payer MEDICARE, OTHER, SELFPAY ==
--- OUTSIDE RECORDS SUMMARY | 2025-05-11 06:36 | XMS RPT_ITS | CCD ---
Author Organization [facility] Care Team Providers Care Pillar Man Name Role Phone Dr. Jb Perez Chi Primary Care Provider [phone] Dr. Jb Perez Chi Referring Provider [phone] Alma Rosa Coto Attending Provider [phone] Dr. Alma Rosa Coto Primary Care Provider Dr. Alma Rosa Coto Referring Provider [phone] Dr. Alma Rosa Coto Attending Provider [phone] Dank IN MOLD COATER, IN MOLD COATER-C Martina Roberts Attending Provider [phone] Friend, Dr. Grimaldo Attending Provider [phone] Friend, Dr. Grimaldo Other Provider [phone] Alma Rosa Coto Primary Care Provider Dr. Alma Rosa Coto Attending Provider [phone] Dr. Alma Rosa Coto Referring Provider [phone] Dr. Alma Rosa Coto MD Primary Care Provider [phone] Dr. Alma Rosa Coto MD Attending Provider Dr. Alma Rosa Coto MD Referring Provider Melly BERMEO, Dr. Rosado Attending Provider Alma Rosa Coto Referring Unavailable Alma Rosa Coto Attending Unavailable Alma Rosa Coto Primary Care Unavailable Alma Rosa Coto Referring Unavailable Alma Rosa Coto Attending Unavailable Alma Rosa Coto Primary Care Unavailable Alma Rosa Coto Primary Care Unavailable Nicasio, Alma Rosa Attending Unavailable Chica, Alma Rosa Referring Unavailable Nicasio, Alma Rosa Referring Unavailable Chica, Alma Rosa Primary Care Unavailable Ashlee Pickard Attending Unavailabl e Chica, Alma Rosa Referring Unavailable Chica, Alma Rosa Primary Care Unavailable Chica, Alma Rosa Attending Unavailable Chica, Alma Rosa Referring Unavailable Dion Henson Attending Unavailable Nicasio, Alma Rosa Primary Care Unavailable Chica, Alma Rosa Referring Unavailable Chica, Alma Rosa Attending Unavailable Chica, Alma Rosa Primary Care Unavailable Nicasio, Alma Rosa Referring Unavailable Chica, Alma Rosa Primary Care Unavailable Chica, Alma Rosa Attending Unavailable Nicasio, Alma Rosa Attending Unavailable Nicasio, Alma Rosa Primary Care Unavailable Nicasio, Alma Rosa Referring Unavailable Allergies Allergy Classification Reported Allergen(s) Allergy Type Date of Onset Reaction(s) Facility (9 sources) Lactose Drug Allergy 2 Nausea/Vom/Diar madeleine [facility] (10 sources) Promethazine; Translations: [promethazine HCl] Drug Allergy 2 Other [facility] Comment on above: HALLUCINATIONS (1 source) Lactose Drug Allergy 5 [facility] Repository Medications Current Medications Medication Drug Class(es) Dates Sig (Normalized) Sig (Original) calcium carbonate 1500 mg / cholecalciferol 0.01 mg oral tablet (9 sources) Vitamin D Start: 07-02-2017 Calcium Carbonate-Vitamin D3 1 EACH tablet Active 1 NMA PO TWICE A DAY July 02, 2017 1:00am Start: 07-02-2017 Calcium Carbon ate-Vitamin D3 Active 1 EACH PO TWICE A DAY July 02, 2017 1:00am doxepin hydrochloride 100 mg oral capsule (9 sources) Tricyclic Antidepressant Start: 01-10-2022 take 2 capsules by mouth at bedtime Doxepin 100 mg capsule Active 200 mg PO AT BEDTIME January 10, 2022 12:00am Start: 01-10-2022 take 200 mg by mouth at bedtim e Doxepin Active 200 MG PO AT BEDTIME January 10, 2022 12:00am folic acid 20 mg oral capsule (9 sources) Start: 01-10-2022 take 1 capsule by mouth once daily Folic Acid 20 mg capsule Active 20 mg PO DAILY January 10, 2022 12:00am Multivitamin 1 EACH tablet (3 sources) Start: 07-02-2017 Multivitamin 1 EACH tablet Active 1 NMA PO DAILY July 02, 2017 1:00am Multivitamin preparation (6 sources) Start: 07-02-2017 Multivitamin Active 1 EACH PO DAILY July 02, 2017 1:00am psyllium 400 mg oral capsule (9 sources) Start: 01-10-2022 Psyllium Husk (Fiber (Psyllium Husk)) 0.4 gram capsule Active 0.4 g PO Q8H January 10, 2022 12:00am venlafaxine 75 mg oral tablet (18 sources) Serotonin and Norepinephrine Reuptake Inhibitor Start: 01-10-2022 Venlafaxine 75 mg tablet Active 75 mg PO .4 times daily January 10, 2022 3:09pm Start: 06-28-2017 End: 01-10-2022 take 2 tablets by mouth twice daily Venlafaxine 75 MG tablet Discontinued 150 mg PO TWICE A DAY June 28, 2017 1:00am January 10, 2022 3:13pm Start: 06-28-2017 End: 01-10-2022 take 150 mg by mouth twice daily Venlafaxine Discontinued 150 MG PO TWICE A DAY June 28, 2017 1:00am January 10, 2022 3:13pm 100 ml zoledronic acid 0.05 mg/ml injection (7 sources) Bisphosphonate Start: 02-25-2023 Zoledronic Gkmy-Dnbgtopp-Marcc (Reclast) 5 mg/100 mL piggyback Active 1 NMA .Route ONCE 100 0 February 25, 2023 12:00am Infuse 5mg once Start: 03-02-2022 zoledronic aci d Active March 02, 2022 12:00am Completed/Discontinued Medications Medication Drug Class(es) Dates Sig (Normalized) Sig (Original) alendronic acid 70 mg oral tablet (9 sources) Bisphosphonate Start: 01-31-2022 End: 02-05-2022 take 1 tablet by mouth every week Alendronate (Fosamax) 70 mg tablet Discontinued 70 mg PO EVERY WEEK 4 January 31, 2022 12:00am February 05, 2022 4:48pm ALPRAZolam 0.25 mg oral tablet (9 sources) Benzodiazepine Start: 06-28-2017 End: 01-10-2022 take 1 tablet by mouth once daily Alprazolam 0.25 MG tablet Discontinued 0.25 mg PO DAILY June 28, 2017 1:00am January 10, 2022 3:11pm anxiety azithromycin 250 mg oral tablet (3 sources) Macrolide Antimicrobial Start: 07-03-2024 End: 10-19-2024 take 2-5 tablets by mouth once daily Azithromycin 250 mg tablet Discontinued 0 PO .COMPLEX 6 0 July 03, 2024 1:00am October 19, 2024 3:38pm take 500 mg today (day 1), then 250 mg for 4 days (days 2-5) PO benzonatate 100 mg oral capsule (3 sources) Non-narcotic Antitussive Start: 07-03-2024 End: 10-19-2024 take 2 capsules by mouth three times daily as needed for cough Benzonatate 100 mg capsule Discontinued 200 mg PO THREE TIMES A DAY as needed for cough 30 0 July 03, 2024 1:00am October 19, 2024 3:38pm ergocalciferol 1.25 mg oral capsule (9 sources) Provitamin D2 Compound Start: 06-28-2017 End: 01-10-2022 Ergocalciferol (Vitamin D2) 94317 U capsule Discontinued 1 NMA PO EVERY MONTH June 28, 2017 1:00am January 10, 2022 3:10pm Start: 06-28-2017 End: 01-10-2022 take 1 capsule by mouth every month Ergocalciferol (Vitamin D2) Discontinued 1 CAP PO EVERY MONTH June 28, 2017 1:00am January 10, 2022 3:10pm esomeprazole 20 mg delayed release oral capsule (18 sources) Proton Pump Inhibitor Start: 08-14-2017 End: 01-10-2022 take 2 capsules by mouth once daily Esomeprazole Magnesium (Nexium) 20 mg capsule,delayed release(DR/EC) Discontinued 40 mg PO daily August 14, 2017 1:00am January 10, 2022 3:10pm Start: 10-15-2014 End: 08-14-2017 take 1 capsule by mouth once daily Esomeprazole Magnesium 40 MG capsule Discontinued 40 mg PO DAILY October 15, 2014 1:00am August 14, 2017 11:09am ketorolac tromethamine 10 mg oral tablet (9 sources) Nonsteroidal Anti-inflammatory Drug, Cyclooxygenase Inhibitor Start: 07-24-2017 End: 01-10-2022 take 1 tablet by mouth every six hours Ketorolac 10 MG tablet Discontinued 10 mg PO EVERY 6 HOURS 10 0 July 24, 2017 1:00am January 10, 2022 3:11pm Magnesium (9 sources) Start: 08-14-2017 End: 01-10-2022 take 2 tablets by mouth once daily Magnesium 250 mg tablet Discontinued 500 mg PO daily August 14, 2017 1:00am January 10, 2022 3:11pm Start: 08-14-2017 End: 01-10-2022 take 500 mg by mouth once daily Magnesium Discontinued 500 MG PO daily August 14, 2017 1:00am January 10, 2022 3:11pm melatonin 10 mg oral capsule (9 sources) Start: 08-14-2017 End: 01-10-2022 take 1 capsule by mouth at bedtime as needed Melatonin 10 mg capsule Discontinued 10 mg PO BEDTIME as needed August 14, 2017 1:00am January 10, 2022 3:11pm omeprazole 20 mg delayed release oral tablet (20 sources) Proton Pump Inhibitor Start: 01-10-2022 End: 01-27-2024 take 1 tablet by mouth once daily Omeprazole Magnesium (Prilosec Otc) 20 mg tablet,delayed release (DR/EC) Discontinued 20 mg PO DAILY 90 1 February 26, 2023 10:54am January 27, 2024 1:49pm ondansetron 4 mg oral tablet (9 sources) Serotonin-3 Receptor Antagonist Start: 07-02-2017 End: 01-10-2022 Ondansetron Hcl 4 MG tablet Discontinued 4 mg PO NEEDED as needed for Nausea July 02, 2017 1:00am January 10, 2022 3:11pm pantoprazole 40 mg delayed release oral tablet (12 sources) Proton Pump Inhibitor Start: 01-27-2024 End: 04-12-2025 take 1 tablet by mouth once daily Pantoprazole 40 mg tablet,delayed release (DR/EC) Discontinued 40 mg PO DAILY 90 October 15, 2024 5:14pm April 12, 2025 9:56am potassium citrate 10 meq extended release oral tablet (9 sources) Start: 07-17-2017 End: 01-10-2022 take 1 tablet by mouth twice daily Potassium Citrate 10 MEQ tablet extended release Discontinued 10 meq PO TWICE A DAY July 17, 2017 1:00am January 10, 2022 3:11pm rOPINIRole 0.5 mg oral tablet (20 sources) Nonergot Dopamine Agonist Start: 07-24-2022 End: 12-09-2024 take 1 tablet by mouth at bedtime Ropinirole 0.5 mg tablet Discontinued 0.5 mg PO AT BEDTIME 90 1 June 17, 2024 7:32am December 09, 2024 12:58pm administer 1-3 hours before bedtime traZODone hydrochloride 100 mg oral tablet (18 sources) Serotonin Reuptake Inhibitor Start: 06-28-2017 End: 01-10-2022 take 2-3 tablets by mouth once daily at bedtime as needed Trazodone 100 MG tablet Discontinued 0 PO AT BEDTIME as needed for Insomnia August 14, 2017 11:09am January 10, 2022 3:11pm 2-3 tabs PO QHS PRN; Start: 06-28-2017 End: 08-14-2017 Trazodone 100 MG tablet Disc ontinued 1 - 2 {tbl} PO AT BEDTIME as needed for Insomnia June 28, 2017 1:00am August 14, 2017 11:13am Problems Active Problems Problem Classification Problem Date Documented Da te Episodic/Chronic Acute bronchitis (3 sources) Acute bronchitis; Translations: [Acute bronchitis, unspecified] 07-03-2024 Episodic Administrative/social admission (2 sources) Persons encountering health services in other specified circumstances; Translations: [Other reasons for seeking consultation] Episodic Anxiety disorders (18 sources) Mixed anxiety and depressive disorder; Translations: [Other specified anxiety disorders] Chronic Esophageal disorders (19 sources) Gastroesophageal reflux disease; Translations: [Gastro-esophageal reflux disease without esophagitis] Chronic Immunizations and screening for infectious disease (2 sources) Other specified abnormal immunological findings in serum; Translations: [Nonspecific abnormal results of function study of thyroid] Episodic Nutritional deficiencies (2 sources) Cobalamin deficiency; Translations: [Deficiency of other specified B group vitamins] 04-20-2025 Episodic Osteoporosis (16 sources) Osteoporosis; Translations: [Age-related osteoporosis without current pathological fracture] Onset: 5 Chronic Other aftercare (1 source) Other fpc (current) drug therapy; Translations: [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] Onset: 5 Episodic Other bone disease and musculoskeletal deformities (9 sources) Osteopenia; Translations: [Other specified disorders of bone density and structure, unspecified site] 02-21-2022 Episodic Other bone disease and musculoskeletal deformities (2 sources) Other specified disorders of bone density and structure, unspecified site; Translations: [Disorder of bone and cartilage, unspecified] Episodic Other connective tissue disease (7 sources) Pain in right leg; Translations: [Pain in limb] Episodic Other gastrointestinal disorders (3 sources) Other fecal abnormalities; Translations: [Abnormal feces] Episodic Other gastrointestinal disorders (7 sources) Stool DNA-based colorectal cancer screening positive; Translations: [Other fecal abnormalities] 06-11-2022 Episodic Other hereditary and degenerative nervous system conditions (8 sources) Restless legs; Translations: [Restless legs syndrome] 07-24-2022 Chronic Other hereditary and degenerative nervous system conditions (3 sources) Restless legs syndrome; Translations: [Restless legs syndrome (RLS)] 01-24-2023 Chronic Other screening for suspected conditions (not mental disorders or infectious disease) (18 sources) Encounter for other screening for malignant neoplasm of breast; Translations: [Breast screening, unspecified] Onset: Episodic Other skin disorders (2 sources) Night sweats; Translations: [Generalized hyperhidrosis] 04-20-2025 Episodic Residual codes; unclassified (9 sources) FH: Thyroid disorder; Translations: [Family history of other endocrine, nutritional and metabolic diseases] 08-14-2017 Episodic Comment on above: Will check thyroid l abs for patient.Enc rest, healthy diet, and exercise.Good sleep hygiene. Past or Other Problems Problem Classification Problem Date Documented Da te Episodic/Chronic Malaise and fatigue (1 source) Other fatigue; Translations: [Other fatigue] Onset: 07-03-2024 Episodic Results Test Name Value Interpretation Reference Range Facility Internal Medicine Office Vis sonia 04-16-2025 Internal Medicine Office Visit [facility] [address] [place] [address] [place], [place] [id number] OFFICE VISIT Date of Service: 04/20/25 MR#: [id number] Acct: [id number] Name: SELVIN ARRINGTON Rep #: [id number] : 1955 Provider: Dr. Alma Rosa alvarez MD Age/Sex: 69/F Location: BMS.BIM Status: Signed Intake Vital Signs 10/19/24 14:39 04/20/25 14:38 Height 5 ft 4 in 5 ft 4 in Weight: 196 lb 8 oz BMI 33.7 BP 132/78 H Blood Pressure Location Lt brachial Position Sitting Respiration 16 Pulse 114 H Pulse Source Monitor Temp 98.3 F Temp Source Temporal Pulse Oximetry (%) 98 Oxygen Delivery Method room air Intake Visit Reasons: 6 M FU Chief Complaint: 6 M FU Steward/Stewardess Second Class Required: No Accompanied by: Is patient in pain?: No Allergies lactose Adverse Reaction (Verified 04/20/25 14:31) Nausea/Vom/Diarrhea promethazine HCl (From Phenergan) Adverse Reaction (Verified 04/20/25 14:31) Other Medications ???Medication ???Instructions ???Recorded ???Confirmed ???Type calcium 600 mg (as 1 ea PO BID 07/02/17 04/20/25 Hist ory carbonate)-vitamin D3 10 mcg (400 unit) tablet multivitamin 1 ea PO DAILY 07/02/17 04/20/25 Hi story doxepin 100 mg capsule 200 mg PO QHS 01/10/22 04/20/25 Hi story folic acid 20 mg capsule 20 mg PO DAILY 01/10/22 04/20/25 H istory psyllium husk 0.4 gram capsule 0.4 g PO Q8H 01/10/22 04/20/25 His tory (Fiber (psyllium husk)) venlafaxine 75 mg tablet 75 mg PO .4 times daily 01/10/22 0 04/20/25 History zoledronic acid 5 mg/100 mL in 1 ea .Route ONCE #100 mL 02/25/23 04/20/25 Rx mannitol 5 %-water intravenous piggybck (Reclast) ropinirole 0.5 mg tablet 0.5 mg PO QHS #90 tabs 12/09/24 Rx pantoprazole 40 mg tablet,delayed 40 mg PO DAILY #90 tabs 04/12/25 04/20/25 Rx release Have you fallen in the past year?: No [facility] Medical History Wears glasses Depression Anxiety Easy bruising Restless legs Gastric reflux Shortness of breath on exertion Former smoker Positive colorectal cancer screening using DNA-based stool test Depression with anxiety Ovarian cyst Small bowel obstruction due to adhesions Malabsorption Vitamin deficiency GERD (gastroesophageal reflux disease) Osteopenia Osteoarthritis Hypoglycemia Low calcium levels GI problem Breast cyst Anemia Seasonal allergies Surgical History History of cystoscopy H/O carpal tunnel repair Hx of cholecystectomy H/O gastric bypass H/O tubal ligation Family History (Updated 04/20/25 @ 15:[address] Alma Rosa Coto MD) Father Diabetes Myocardial infarction 60s Mother Graves' disease Fibromyalgia Social History (Updated 04/20/25 @ 15:[address] Alma Rosa Coto MD) household members: spouse current occupational status: retired current occupation: worked multiple jobs Smoking Status: Former smoker quit date: 08/19/86 pack-years: 10 alcohol intake: never substance use type: does not use what type of physical activity do you participate in: none do you feel safe at home: Yes Questionnaire PQH-9 BMS Over the last 2 weeks, how often have you been bothered by any of the following problems? 1. Little interest or pleasure in doing things: not at all 2. Feeling down, depressed, or hopeless: not at all 3. Trouble falling or staying asleep, or sleeping too much: not at all 4. Feeling tired or having little energy: more than half the days 5. Poor appetite or overeating: not at all 6. Feeling bad about yourself - or that you are a failure or have let yourself and your family down: not at all 7. Trouble concentrating on things, such as reading the newspaper or watching television: not at all 8. Moving or speaking so slowly that other people could have noticed? - Or the opposite - being so fidgety or restless that you have been moving around a lot more than usual: not at all 9. Thoughts that you would be better off or of hurting yourself in some way: not at all Total score: 2 If you checked off any problems, how difficult have these problems made it for you to do your work, take care of things at home, or get along with other people?: not difficult at all Source: Developed by Drs. Winston Conn, Penelope Mustafa, Dragan Cristobal and colleagues, with an educational john from [employer] HPI HPI Chief Complaint: 6 M FU Details: SELVIN ARRINGTON, is a 69 F who presents to the office today for a follow up.??? She is due for some routine blood work, already ordered, and some screening.??? She isn't due for any immunizations.??? She reports she is eating healthy and staying active.??? She doesn't smoke and does not need refills today. She reports her heartburn has been d (more content not included)... Normal [facility] Electrocardiogram reportOrde red By: Ashlee Pickard on 04-12-2025 EKG study [facility] Cardiovascular Services [address] [place] [address] 12 Lead EKG 04/08/25 1341 MR#: [id number] Acct: [id number] Name: SELVIN ARRINGTON Rep #:[id number] : 1955 69 From: Ashlee shepherd MD Attending Dr: Dr. Alma Rosa Coto MD Status: REG CLI Ordering Dr: Alma Rosa Coto MD Date: 04/08/25 Location: OPBD Sex: F C Admitted: Test Reason : PREOP Blood Pressure : */* mmHG Vent. Rate : 95 BPM Atrial Rate : 95 BPM P-R Int : 206 ms QRS Dur : 86 ms QT Int : 352 ms P-R-T Axes : 79 28 -32 degrees QTcB Int : 442 ms Normal sinus rhythm with sinus arrhythmia Possible Inferior infarct , age undetermined Abnormal ECG When compared with ECG of 10-Apr-2019 12:01, Borderline criteria for Inferior infarct are now Present Nonspecific T wave abnormality now evident in Anterior leads Confirmed by MELLY BERMEO, ANJELICA ([id number]), art editor ANGELY GARCIA ([id number]) on 04/12/2025 6:33:27 AM Referred By: Alma Rosa Coto Confirmed By: ANJELICA PICKARD MD 04/12/25 0633 Date _ Ashlee Pickard MD CC: Dr. Alma Rosa Coto MD ~ Signed [facility] Work Phone: 12 Lead EKGon 04-08-2025 12 Lead EKG [facility] Cardiovascular Services [address] [place] [address] 12 Lead EKG 04/08/25 1341 MR#: [id number] Acct: [id number] Name: SELVIN ARRINGTON Rep #: [id number] : 1955 69 From: Ashlee Pickadr MD Attending Dr: Dr. Alma Rosa Coto MD Status: RE G CLI Ordering Dr: Alma Rosa Coto MD Date: 04/08/25 Location: OPBD Sex: F C Admitted: Test Reason : PREOP Blood Pressure : */* mmHG Vent. Rate : 95 BPM Atrial Rate : 95 BPM P-R Int : 206 ms QRS Dur : 86 ms QT Int : 352 ms P-R-T Axes : 79 28 -32 degrees QTcB Int : 442 ms Normal sinus rhythm with sinus arrhythmia Possible Inferior infarct , age undetermined Abnormal ECG When compared with ECG of 10-Apr-2019 12:01, Borderline criteria for Inferior infarct are now Present Nonspecific T wave abnormality now evident in Anterior leads Confirmed by MELLY BERMEO, ANJELICA ([id number]), art editor ANGELY GARCIA ([id number]) on 04/12/2025 6:33:27 AM Referred By: Alma Rosa Coto Confirmed By: ANJELICA PICKARD MD 04/12/25 0633 Date Ashlee Pickard MD CC: Dr. Alma Rosa Coto MD Signed Normal [facility] Bone density reportOrdered B y: Tony Castillo on 04-08-2025 Study report Skeletal system DXA [facility] Imaging Services [address] [place] [address] Dexa Bone Density Study MR#: [id number] Acct: [id number] Name: SELVIN ARRINGTON Rep #: [id number] : 1955 F 69 From: Blayne Castillo MD PCP: Dr. Alma Rosa Coto MD Status: REG CLI Study:Dexa Bone Density Study Date of Exam: 04/08/25 Exam# [id number] Ordering Dr: Alma Rosa Coto MD PROCEDURE: DEXA BONE DENSITY STUDY 04/08/2025 REASON FOR EXAM: FOLLOW UP F, age 69 y/o . Postmenopausal. TECHNIQUE: DEXA BONE DENSITY STUDY COMPARISON: Prior study dated January 30, 2022. FINDINGS: BMD and T-SCORES Lumbar spine: 0.782 g/cm2, T-score -2.9 Levels: L1 through L4 Change from prior: Improvement of 0.7%. Left femoral neck: 0.618 g/cm2, T-score -2.1 Femoral neck comparison data not recommended for monitoring change. Left total hip: 0.771 g/cm2, T-score -1.4 Change from prior: Improvement of 2.2%. Right femoral neck: 0.629 g/cm2, T-score -2.0 Femoral neck comparison data not recommended for monitoring change. Right total hip: 0.733 g/cm2, T-score -1.7 Change from prior: Improvement of 3.5%. Delay tat The World Health Organization has defined the following categories based on bonedensity: Normal bone density: T-score equal to or greater than -1.0 Osteopenia: T-score between -1.0 and -2.5 Osteoporosis: T-score equal to or less than -2.5 FRAX (or Comparable) Fracture Risk Assessment: 10 Year Probability of Fracture: Major Osteoporotic Fracture: 11% Hip Fracture: 1.9% (Note: FRAX is not to be reported in setting of normal range bone density, osteoporosis on DEXA, known history of osteoporosis, prior osteoporotic hip or vertebral fracture, or for any patient undergoing pharmacological treatment for bone loss.) The National Osteoporosis Foundation (NOF) recommends pharmacological treatment for patients with a FRAX 10-year risk of 3% or higher for a hip fracture, or 20% or higher for a major osteoporotic fracture, to prevent osteoporosis and reduce fracture risk. The patient does meet the pharmacological treatment recommendations for prevention of osteoporosis. BD/Dexa Bone Density Study IMPRESSION: OSTEOPOROSIS. Recommend follow-up as clinically warranted. Reading Location: [id number] CC: Dr. Alma Rosa Coto MD ~ Drier Operator Head: Signed [facility] Dexa Bone Density Studyon Dexa Bone Density Study [facility] Imaging Services [address] [place] [id number] Dexa Bone Density Study MR#: [id number] Acct: [id number] Name: SELVIN ARRINGTON Rep #: [id number] : 1955 F 69 From: Tony garcia MD PCP: Dr. Alma Rosa Coto MD Status: REG CLI Study: Dexa Bone Density Study Date of Exam: 04/08/25 Exam# [id number] Ordering Dr: Alma Rosa Coto MD PROCEDURE: DEXA BONE DENSITY STUDY 04/08/2025 REASON FOR EXAM: FOLLOW UP F, age 69 y/o . Postmenopausal. TECHNIQUE: DEXA BONE DENSITY STUDY COMPARISON: Prior study dated January 30, 2022. FINDINGS: BMD and T-SCORES Lumbar spine: 0.782 g/cm2, T-score -2.9 Levels: L1 through L4 Change from prior: Improvement of 0.7%. Left femoral neck: 0.618 g/cm2, T-score -2.1 Femoral neck comparison data not recommended for monitoring change. Left total hip: 0.771 g/cm2, T-score -1.4 Change from prior: Improvement of 2.2%. Right femoral neck: 0.629 g/cm2, T-score -2.0 Femoral neck comparison data not recommended for monitoring change. Right total hip: 0.733 g/cm2, T-score -1.7 Change from prior: Improvement of 3.5%. Delay tat The World Health Organization has defined the following categories based on bone density: Normal bone density: T-score equal to or greater than -1.0 Osteopenia: T-score between -1.0 and -2.5 Osteoporosis: T-score equal to or less than -2.5 FRAX (or Comparable) Fracture Risk Assessment: 10 Year Probability of Fracture: Major Osteoporotic Fracture: 11% Hip Fracture: 1.9% (Note: FRAX is not to be reported in setting of normal range bone density, osteoporosis on DEXA, known history of osteoporosis, prior osteoporotic hip or vertebral fracture, or for any patient undergoing pharmacological treatment for bone loss.) The National Osteoporosis Foundation (NOF) recommends pharmacological treatment for patients with a FRAX 10-year risk of 3% or higher for a hip fracture, or 20% or higher for a major osteoporotic fracture, to prevent osteoporosis and reduce fracture risk. The patient does meet the pharmacological treatment recommendations for prevention of osteoporosis. BD/Dexa Bone Density Study IMPRESSION: OSTEOPOROSIS. Recommend follow-up as clinically warranted. Reading Location: [id number] CC: Dr. Alma Rosa Coto MD Drier Operator Head: Signed Normal [facility] Internal Medicine Office Vis [facility] 10-15-2024 Internal Medicine Office Visit [facility] [address] [place] [address] OFFICE VISIT Date of Service: 10/19/24 MR#: [id number] Acct: [id number] Name: SELVIN ARRINGTON Rep #: [id number] : 1955 Provider: Dr. Alma Rosa alvarez MD Age/Sex: 68/F Location: [facility] Status: Signed Intake Vital Signs 07/03/24 13:56 10/19/24 14:39 Height 5 ft 4 in 5 ft 4 in Weight: 198 lb 2 oz BMI 34.0 BP 118/72 Blood Pressure Location Lt brachial Position Sitting Respiration 16 Pulse 101 H Pulse Source Monitor Temp 96.7 F L Temp Source Temporal Pulse Oximetry (%) 99 Oxygen Delivery Method room air Intake Visit Reasons: FOLLOW UP Chief Complaint: 6 M FU Steward/Stewardess Second Class Required: No Accompanied by: Self Is patient in pain?: No Allergies lactose Adverse Reaction (Verified 10/19/24 14:38) Nausea/Vom/Diarrhea promethazine HCl (From Phenergan) Adverse Reaction (Verified 10/19/24 14:38) Other Medications ???Medication ???Instructions ???Recorded ???Confirmed ???Type calcium 600 mg (as 1 ea PO BID 07/02/17 10/19/24 Hist ory carbonate)-vitamin D3 10 mcg (400 unit) tablet multivitamin 1 ea PO DAILY 07/02/17 10/19/24 Hi story doxepin 100 mg capsule 200 mg PO QHS 01/10/22 10/19/24 Hi story folic acid 20 mg capsule 20 mg PO DAILY 01/10/22 10/19/24 H istory psyllium husk 0.4 gram capsule 0.4 g PO Q8H 01/10/22 10/19/24 His tory (Fiber (psyllium husk)) venlafaxine 75 mg tablet 75 mg PO .4 times daily 01/10/22 0 10/19/24 History zoledronic acid 5 mg/100 mL in 1 ea .Route ONCE #100 mL 02/25/23 10/19/24 Rx mannitol 5 %-water intravenous piggybck (Reclast) ropinirole 0.5 mg tablet 0.5 mg PO QHS #90 tabs 06/17/24 Rx pantoprazole 40 mg tablet,delayed 40 mg PO DAILY #90 tabs 10/15/24 10/19/24 Rx release Have you fallen in the past year?: No PFSH Medical History Wears glasses Depression Anxiety Easy bruising Restless legs Gastric reflux Shortness of breath on exertion Former smoker Positive colorectal cancer screening using DNA-based stool test Depression with anxiety Ovarian cyst Small bowel obstruction due to adhesions Malabsorption Vitamin deficiency GERD (gastroesophageal reflux disease) Osteopenia Osteoarthritis Hypoglycemia Low calcium levels GI problem Breast cyst Anemia Seasonal allergies Surgical History History of cystoscopy H/O carpal tunnel repair Hx of cholecystectomy H/O gastric bypass H/O tubal ligation Family History Father Diabetes Mother Graves' disease Fibromyalgia Social History household members: spouse current occupational status: retired current occupation: worked multiple jobs Smoking Status: Former smoker quit date: 08/19/86 pack-years: 10 alcohol intake: never substance use type: does not use what type of physical activity do you participate in: none do you feel safe at home: Yes HPI HPI Chief Complaint: 6 M FU Details: SELVIN ARRINGTON, is a 68 F who presents to the office today for a follow up.??? She is up to date on her blood work and screening.??? She would like a flu shot.??? She reports she is eating healthy and staying active.??? She doesn't smoke and does not need refills today. She reports her heartburn has been doing well. She denies any problems with the medication. She reports her depression and anxiety are stable since she was last seen.??? She continues to follow with psychiatry (Dr. Lemos) and sees him once a year.??? She denies any current concerns about depression or anxiety.??? She denies any thoughts of suicide. She continues to do well with the requip for her RLS without problems. She reports she saw a sales development manager who removed the lesion on her ear and was told it was related to pressure. She states it has mostly resolved. Her night sweats mostly resolved with changing her PPI as above. She still does get occasional symptoms, however. She has no other questions or concerns today. ROS Const Constitutional: Positive for night sweats (occasional, improved); No body ache, excessive sweating, fatigue, fever(s), frequent falls, headache(s), snoring, weakness, weight change, sleep problems or change in appetite Eyes Eyes: No blurry vision, change in vision, eye pain or Light sensitivity ENT ENT: No abnormal hearing, ear or mastoid pain, tinnitus, nasal congestion, headache(s), neck pain or sore throat Resp Respiratory: No cough, shortness of breath, snoring or wheezing Cardio Cardiology: No chest pain at rest, chest pain with exertion, excessive sweating, shortness of breath, dysp (more content not included)... Normal [facility] Urgent Care Visit Reporton 1 09-02-2023 Urgent Care Visit Report [facility] [address], [address] [place] [address] OFFICE VISIT Date of Service: 07/03/24 MR#: [id number] Acct: [id number] Name: SELVIN ARRINGTON Rep #: [id number] : 1955 Provider: LIZZETH Mcdaniel Age/Sex: 68/F Location: [facility] Status: Signed Intake Vital Signs 04/24/24 14:47 07/03/24 13:56 Height 5 ft 4 in 5 ft 4 in Weight: 200 lb BMI 34.3 BP 126/84 H Blood Pressure Location Lt brachial Position Sitting Respiration 16 Pulse 123 H Pulse Source Monitor Temp 98.4 F Temp Source Oral Pulse Oximetry (%) 96 Oxygen Delivery Method room air Intake Visit Reasons: COUGH, CONGESTION, BODY ACHES Allergies lactose Adverse Reaction (Verified 07/03/24 13:57) Nausea/Vom/Diarrhea promethazine HCl (From Phenergan) Adverse Reaction (Verified 07/03/24 13:57) Other Have you fallen in the past year?: No PFSH Medical History Wears glasses Depression Anxiety Easy bruising Restless legs Gastric reflux Shortness of breath on exertion Former smoker Positive colorectal cancer screening using DNA-based stool test Depression with anxiety Ovarian cyst Small bowel obstruction due to adhesions Malabsorption Vitamin deficiency GERD (gastroesophageal reflux disease) Osteopenia Osteoarthritis Hypoglycemia Low calcium levels GI problem Breast cyst Anemia Seasonal allergies Surgical History History of cystoscopy H/O carpal tunnel repair Hx of cholecystectomy H/O gastric bypass H/O tubal ligation Family History Father Diabetes Mother Graves' disease Fibromyalgia Social History (Updated 01/27/24 @ 13:[address] Alma Rosa Coto MD) household members: spouse current occupational status: retired current occupation: worked multiple jobs Smoking Status: Former smoker quit date: 08/19/86 pack-years: 10 alcohol intake: never substance use type: does not use what type of physical activity do you participate in: none do you feel safe at home: Yes HPI HPI Details: SELVIN ARRINGTON, is a 68 F who presents to the office today for complaint of cough, congestion and fatigue for the past several days. Patient denies fever, chills, sweats. No nausea vomiting or diarrhea palely loss of taste or smell. No other associated symptoms or alleviating/aggravat ing factors. ROS Const Constitutional: No other (6 system ROS completed with pertinent findings in the HPI otherwise normal.) Exam Const General: cooperative and well developed HENMT Head: normal to inspection and atraumatic Ears: hearing grossly normal bilaterally Nose: nasal discharge clear Face and sinus: normal facial exam Mouth: oral mucosae normal Throat: abnormal tonsil bilaterally hypertrophy 1+ Resp Effort Inspection: normal respiratory effort and no audible wheezes Auscultation: Bilateral: Clear to Auscultation Cardio Palpation: normal PMI Rate: regular rate Rhythm: regular rhythm Neuro General: patient alert and CN's II-XI intact bilaterally Psych Appearance: grossly normal Mental Status: mental status grossly normal Results POC SARS AG POC SARS AG Negative Last Edit by Lizzie Trujillo on 07/03/24 14:09 POC FLU A B Office Flu A B Negative FLU A B Last Edit by Lizzie Trujillo on 07/03/24 14:10 Coding Level of Care Code Off vis,new,level 3 Diagnoses Acute bronchitis J20.9 Assessment and Plan Assessment and Plan (1) Acute bronchitis: Status: Acute Plan: Patient tested negative for flu and COVID in the office today. Azithromycin and benzonatate as prescribed today. Encouraged to get plenty of rest, drink lots of clear liquids, and use Tylenol or Ibuprofen (unless contraindicated) for fever and comfort. Patient also educated on other symptomatic management techniques. To be seen in 7-10 days if no improvement; sooner if worsening of symptoms. Patient advised of potential red flags and when appropriate to report to the ED. Patient verbalized understanding and agreement with all the above. Orders: Orders POC FLU A B Today R53.83 - Other fatigue POC Rapid SARS Antigen Today Medications: New azithromycin take 500 mg today (day 1), then 250 mg for 4 days (days 2-5) PO 6 tabs 0RF benzonatate 200 mg (2 x 100 mg) PO TID PRN 30 caps 0RF cough Clinical Quality Measures Falls Risk Screening/Assistive Devices Have you fallen in the past year?: No 07/03/24 1713 Date Dion MOREAU Cosigner Signature: Date (if applicable) CC: Normal [facility] Absolute lymphocyte counton 01-10-2022 Lymphocytes Auto (Unsp spec) [#/Vol] 1.38 10*3/uL 0.83-4.51 [facility] Work Phone: Basophil percentageon 2021 Basophils/100 WBC (Bld) 0.8 % 0-1 [facility] Work Phone: Bilirubin [Mass/Vol] 0.20 mg/dL 0.20-1.00 [facility] Work Phone: Comment on above: For patients on eltr ombopag therapy, use of Dimension [place] TBIL is not recommended. Chloride [Moles/Vol] 108 mmol/L 98-107 [facility] Work Phone: Eosinophils/100 WBC (Bld) 1.5 % 0-5 [facility] Work Phone: Glucose [Mass/Vol] 107 mg/dL 74-106 [facility] Work Phone: Comment on above: Fasting Glucose resu lt from 100 to 125 mg/dL suggests IMPAIRED HOMEOSTASIS per A.D.A. criteria. Neutrophils (Bld) [#/Vol] 4.8 10*3/uL 2.0-7.7 [facility] Work Phone: Neutrophils/100 WBC (Bld) 67.9 % 47-70 [facility] Work Phone: Potassium [Moles/Vol] 4.8 mmol/L 3.5-5.1 [facility] Work Phone: Protein [Mass/Vol] 7.5 g/dL 6.4-8.2 [facility] Work Phone: Sodium [Moles/Vol] 138 mmol/L 136-145 [facility] Work Phone: WBC (Bld) [#/Vol] 7.1 10*3/uL 4.4-11.0 [facility] Work Phone: Blood erythrocytes count (nu mber/volume)on 01-10-2022 RBC (Bld) [#/Vol] 4.39 10*6/uL 4.2-5.4 [facility] Work Phone: Blood hemoglobin measurement (mass/volume)on 01-10-2022 Hemoglobin (Bld) [Mass/Vol] 12.4 g/dL 12.0-15.0 [facility] Work Phone: Blood lymphocytes/100 leukoc yteson 01-10-2022 Lymphocytes/100 WBC (Bld) 19.4 % 19-41 [facility] Work Phone: Blood monocytes/100 leukocyt eson 01-10-2022 Monocytes/100 WBC (Bld) 10.1 % 0-10 [facility] Work Phone: Blood platelet mean volumeon 01-10-2022 Platelet mean volume (Bld) [Entitic vol] 9.4 fL 6.2-12.0 [facility] Work Phone: Determination of erythrocyte mean corpuscular volume (MCV)on 01-10-2022 MCV (RBC) [Entitic vol] 87.5 fL 81-99 [facility] Work Phone: Hematocrit Auto (Bld) [Volum e fraction]on 01-10-2022 Hematocrit (Bld) [Volume fraction] 38.4 % 37-47 [facility] Work Phone: Laboratory - Chemistry and C hemistry - challengeon 01-10-2022 ALP [Catalytic activity/Vol] 130 U/L 45-117 [facility] Work Phone: ALT [Catalytic activity/Vol] 38 U/L 13-56 [facility] Work Phone: CO2 [Moles/Vol] 25.0 mmol/L 21.0-32.0 [facility] Work Phone: Globulin (S) [Mass/Vol] 3.8 g/dL 2.2-4.2 [facility] Work Phone: Urea nitrogen/Creatinine [Mass ratio] 23.0 mg/mg 10-20 [facility] Work Phone: Laboratory - Hematology and Cell countson 01-10-2022 Erythrocyte distribution width (RBC) [Entitic vol] 45.8 fL 35.1-43.9 [facility] Work Phone: Erythrocyte distribution width (RBC) [Ratio] 14.3 % 11.6-14.6 [facility] Work Phone: Immature granulocytes/100 WBC (Bld) 0.300 % 0.0-0.9 [facility] Work Phone: Comment on above: IG% - Immature Granu locytes (promyelocytes, myelocytes and metamyelocytes) > 1% indicates that a LEFT SHIFT is Present. MCH (RBC) [Entitic mass] 28.2 pg 27.0-32.0 [facility] Work Phone: Nucleated RBC/100 WBC (Bld) [Ratio] 0 % 0-5 [facility] Work Phone: MCHC Auto (RBC) [Mass/Vol]on 01-10-2022 MCHC (RBC) [Mass/Vol] 32.3 g/dL 32-36 [facility] Work Phone: No Panel Informationon 01-10 Estimated GFR (MDRD) Amer 95 mL/min >60 [facility] Work Phone: Comment on above: GFR Calc Estimated GFR (MDRD) Non-Af Amer 78 mL/min >60 [facility] Work Phone: Comment on above: Non- GFR Calc Platelets bldon 01-10-2022 Platelets (Bld) [#/Vol] 346 10*3/uL 150-450 [facility] Work Phone: Serum or plasma albumin karlie urement (mass/volume)on 01-10-2022 Albumin [Mass/Vol] 3.7 g/dL 3.2-5.0 [facility] Work Phone: Serum or plasma albumin/glob ulin mass ratioon 01-10-2022 Albumin/Globulin [Mass ratio] 1.0 {ratio} 0.9-2.4 [facility] Work Phone: Serum or plasma calcium karlie urement (mass/volume)on 01-10-2022 Calcium [Mass/Vol] 9.1 mg/dL 8.5-10.1 [facility] Work Phone: Serum or plasma creatinine m easurement (mass/volume)on 01-10-2022 Creatinine [Mass/Vol] 0.78 mg/dL 0.55-1.02 [facility] Work Phone: Comment on above: The validity of the calculated GFR & GFRAA in patients over 70 years has not been determined. Clinical correlation is essential. Serum or plasma urea nitroge n measurement (mass/volume)on 01-10-2022 Urea nitrogen [Mass/Vol] 18 mg/dL 7-18 [facility] Work Phone: Thin prep Papanicolaou smear with manual screeningon 01-10-2022 Thin prep Papanicolaou smear with manual screening 22 U/L 15-37 [facility] Work Phone: Thin prep Papanicolaou smear with manual screening 5 5-15 [facility] Work Phone: Vital Signs Date Time Vital Sign Value Performing Clinician Faci lity 04-26-2025 14:20-0400 Diastolic blood pressure 65 mm[Hg] Dr. Alma Rosa Coto MD Work Phone: [facility] 04-26-2025 14:20-0400 Heart rate 87 /min Dr. Alma Rosa Coto MD Work Phone: [facility] 04-26-2025 14:20-0400 Respiratory rate 16 /min Dr. Alma Rosa Coto MD Work Phone: [facility] 04-26-2025 14:20-0400 SaO2% (BldA) [Mass fraction] 95 % Dr. Alma Rosa Coto MD Work Phone: [facility] 04-26-2025 14:20-0400 Systolic blood pressure 97 mm[Hg] Dr. Alma Rosa Coto MD Work Phone: [facility] 04-26-2025 13:49-0400 Body height 162.[address] Alma Rosa Coto MD Work Phone: [facility] 04-26-2025 13:49-0400 Body temperature 97 [degF] Dr. Alma Rosa Coto MD Work Phone: [facility] 04-20-2025 14:38-0400 Body height 162.[address] Alma Rosa Coto MD Work Phone: [facility] 04-20-2025 14:38-0400 Body mass index (BMI) [Ratio] 33.7 kg/m2 Dr. Alma Rosa Coto MD Work Phone: [facility] 04-20-2025 14:38-0400 Body temperature 98.3 [degF] Dr. Alma Rosa Coto MD Work Phone: [facility] 04-20-2025 14:38-0400 Body weight 89.[address] Alma Rosa Coto MD Work Phone: [facility] 04-20-2025 14:38-0400 Diastolic blood pressure 78 mm[Hg] Dr. Alma Rosa Coto MD Work Phone: [facility] 04-20-2025 14:38-0400 Heart rate 114 /min Dr. Alma Rosa Coto MD Work Phone: [facility] 04-20-2025 14:38-0400 Respiratory rate 16 /min Dr. Alma Rosa Coto MD Work Phone: [facility] 04-20-2025 14:38-0400 SaO2% (BldA) [Mass fraction] 98 % Dr. Alma Rosa Coto MD Work Phone: [facility] 04-20-2025 14:38-0400 Systolic blood pressure 132 mm[Hg] Dr. Alma Rosa Coto MD Work Phone: [facility] 03-25-2023 14:44-0400 Body temperature 97 [degF] Dr. Alma Rosa Coto Work Phone: [facility] 03-25-2023 14:44-0400 Diastolic blood pressure 49 mm[Hg] Dr. Alma Rosa Coto Work Phone: [facility] 03-25-2023 14:44-0400 Heart rate 94 /min Dr. Alma Rosa Coto Work Phone: [facility] 03-25-2023 14:44-0400 Respiratory rate 16 /min Dr. Alma Rosa Coto Work Phone: [facility] 03-25-2023 14:44-0400 SaO2% (BldA) [Mass fraction] 96 % Dr. Alma Rosa Coto Work Phone: [facility] 03-25-2023 14:44-0400 Systolic blood pressure 116 mm[Hg] Dr. Alma Rosa Coto Work Phone: [facility] 03-25-2023 14:19-0400 Body height 162.[address] Alma Rosa Coto Work Phone: [facility] 03-25-2023 14:19-0400 Body mass index (BMI) [Ratio] 34.7 kg/m2 Dr. Alma Rosa Coto Work Phone: [facility] 03-25-2023 14:19-0400 Body weight 91.[address] Alma Rosa Coto Work Phone: [facility] 01-24-2023 14:45-0400 Body height 162.[address] Alma Rosa Coto Work Phone: [facility] 01-24-2023 14:45-0400 Body mass index (BMI) [Ratio] 34.7 kg/m2 Dr. Alma Rosa Coto Work Phone: [facility] 01-24-2023 14:45-0400 Body temperature 98.2 [degF] Dr. Alma Rosa Coto Work Phone: [facility] 01-24-2023 14:45-0400 Body weight 91.[address] Alma Rosa Coto Work Phone: [facility] 01-24-2023 14:45-0400 Diastolic blood pressure 82 mm[Hg] Dr. Alma Rosa Coto Work Phone: [facility] 01-24-2023 14:45-0400 Heart rate 90 /min Dr. Alma Rosa Coto Work Phone: [facility] 01-24-2023 14:45-0400 Respiratory rate 14 /min Dr. Alma Rosa Coto Work Phone: [facility] 01-24-2023 14:45-0400 SaO2% (BldA) [Mass fraction] 97 % Dr. Alma Rosa Coto Work Phone: [facility] 01-24-2023 14:45-0400 Systolic blood pressure 112 mm[Hg] Dr. Alma Rosa Coto Work Phone: [facility] 05-24-2022 10:55-0400 Body temperature 98.3 [degF] Dr. Alma Rosa Coto Work Phone: [facility] Work Phone: 05-24-2022 10:55-0400 Diastolic blood pressure 72 mm[Hg] Dr. Alma Rosa Coto Work Phone: [facility] Work Phone: 05-24-2022 10:55-0400 Heart rate 91 /min Dr. Alma Rosa Coto Work Phone: [facility] Work Phone: 05-24-2022 10:55-0400 Respiratory rate 16 /min Dr. Alma Rosa Coto Work Phone: [facility] Work Phone: 05-24-2022 10:55-0400 SaO2% (BldA) [Mass fraction] 100 % Dr. Alma Rosa Coto Work Phone: [facility] Work Phone: 05-24-2022 10:55-0400 Systolic blood pressure 118 mm[Hg] Dr. Alma Rosa Coto Work Phone: [facility] Work Phone: 05-24-2022 09:06-0400 Body height 162.[address] Alma Rosa Coto Work Phone: [facility] Work Phone: 05-24-2022 09:06-0400 Body mass index (BMI) [Ratio] 34.7 kg/m2 Dr. Alma Rosa Coto Work Phone: [facility] Work Phone: 05-24-2022 09:06-0400 Body weight 91.[address] Alma Rosa Coto Work Phone: [facility] Work Phone: 03-08-2022 13:38-0400 Body mass index (BMI) [Ratio] 33.4 kg/m2 Dr. Alma Rosa Coto Work Phone: [facility] Work Phone: 03-08-2022 13:38-0400 Body weight 91.[address] Alma Rosa Coto Work Phone: [facility] Work Phone: 03-08-2022 13:38-0400 Diastolic blood pressure 87 mm[Hg] Dr. Alma Rosa Coto Work Phone: [facility] Work Phone: 03-08-2022 13:38-0400 Heart rate 99 /min Dr. Alma Rosa Coto Work Phone: [facility] Work Phone: 03-08-2022 13:38-0400 SaO2% (BldA) [Mass fraction] 94 % Dr. Alma Rosa Coto Work Phone: [facility] Work Phone: 03-08-2022 13:38-0400 Systolic blood pressure 131 mm[Hg] Dr. Alma Rosa Coto Work Phone: [facility] Work Phone: 03-02-2022 14:00-0400 Body temperature 98.1 [degF] Dr. Jb Perez Work Phone: [facility] Work Phone: 03-02-2022 14:00-0400 Diastolic blood pressure 83 mm[Hg] Dr. Jb Perez Work Phone: [facility] Work Phone: 03-02-2022 14:00-0400 Heart rate 79 /min Dr. Jb Perez Work Phone: [facility] Work Phone: 03-02-2022 14:00-0400 Respiratory rate 16 /min Dr. Jb Perez Work Phone: [facility] Work Phone: 03-02-2022 14:00-0400 SaO2% (BldA) [Mass fraction] 92 % Dr. Jb Perez Work Phone: [facility] Work Phone: 03-02-2022 14:00-0400 Systolic blood pressure 117 mm[Hg] Dr. Jb Perez Work Phone: [facility] Work Phone: 02-21-2022 16:42-0400 Body height 165.[address] Jb Perez Work Phone: [facility] Work Phone: 02-21-2022 16:42-0400 Body mass index (BMI) [Ratio] 33.9 kg/m2 Dr. Jb Perez Work Phone: [facility] Work Phone: 02-21-2022 16:42-0400 Body temperature 98.8 [degF] Dr. Jb Perez Work Phone: [facility] Work Phone: 02-21-2022 16:42-0400 Body weight 92.[address] Jb Perez Work Phone: [facility] Work Phone: 02-21-2022 16:42-0400 Diastolic blood pressure 70 mm[Hg] Dr. Jb Perez Work Phone: [facility] Work Phone: 02-21-2022 16:42-0400 Heart rate 81 /min Dr. Jb Perez Work Phone: [facility] Work Phone: 02-21-2022 16:42-0400 Respiratory rate 18 /min Dr. Jb Perez Work Phone: [facility] Work Phone: 02-21-2022 16:42-0400 SaO2% (BldA) [Mass fraction] 99 % Dr. Jb Perez Work Phone: [facility] Work Phone: 02-21-2022 16:42-0400 Systolic blood pressure 128 mm[Hg] Dr. Jb Perez Work Phone: [facility] Work Phone: 01-30-2022 15:59-0400 Body height 165.[address] Jb Perez Work Phone: [facility] Work Phone: 01-10-2022 15:17-0400 Body mass index (BMI) [Ratio] 34.1 kg/m2 Dr. Jb Perez Work Phone: [facility] Work Phone: 01-10-2022 15:17-0400 Body temperature 98.5 [degF] Dr. Jb Perez Work Phone: [facility] Work Phone: 01-10-2022 15:17-0400 Body weight 92.[address] Jb Perez Work Phone: [facility] Work Phone: 01-10-2022 15:17-0400 Diastolic blood pressure 80 mm[Hg] Dr. Jb Perez Work Phone: [facility] Work Phone: 01-10-2022 15:17-0400 Heart rate 89 /min Dr. Jb Perez Work Phone: [facility] Work Phone: 01-10-2022 15:17-0400 Respiratory rate 14 /min Dr. Jb Perez Work Phone: [facility] Work Phone: 01-10-2022 15:17-0400 SaO2% (BldA) [Mass fraction] 99 % Dr. Jb Perez Work Phone: [facility] Work Phone: 01-10-2022 15:17-0400 Systolic blood pressure 112 mm[Hg] Dr. Jb Perez Work Phone: [facility] Work Phone: Encounters Encounter Date Encounter Type Care Provider Facility Start: 05-11-2025 ambulatory Alma Rosa Chica Facility :[facility] Start: 05-11-2025 ambulatory Alma Rosa Chica Facility :[facility] Start: 04-26-2025 End: 04-26-[address] Alma Rosa Coto MD -[facility] Work Phone: Start: 04-26-2025 End: 04-26-[address] Alma Rosa Coto MD Work Phone: -[facility] Start: 04-20-2025 End: 04-20-[address] Alma Rosa Coto MD -[facility] Work Phone: Start: 04-20-2025 End: 04-20-[address] Alma Rosa Coto MD Work Phone: -[facility] Start: 04-08-2025 Non-patient / Non-visit Dr. Ashlee Pickard MD -[facility] Work Phone: Start: 04-08-2025 End: 04-08-[address] Alma Rosa Coto MD Work Phone: -[facility] Start: 04-08-2025 End: 04-08-[address] Alma Rosa Coto MD -[facility] Work Phone: Start: 04-08-2025 End: 04-08-2025 ambulatory Alma Rosa Coto Facility:[facility] Start: 10-19-2024 End: 10-19-2024 ambulatory Alma Rosa Coto Facility:[facility] Start: 07-03-2024 End: 07-03-2024 ambulatory Alma Rosa Coto Facility:[facility] Start: 03-25-2023 End: 03-25-[address] Alma Rosa Coto Work Phone: [facility] Work Phone: Start: 03-25-2023 End: 03-25-[address] Alma Rosa Coto Work Phone: [facility] Work Phone: Start: 02-21-2023 End: 02-21-[address] Alma Rosa Coto Work Phone: [facility] Work Phone: Start: 02-21-2023 End: 02-21-[address] Alma Rosa Coto Work Phone: [facility]Out[facility] Bone Densitometry Work Phone: Start: 01-24-2023 End: 01-24-[address] Alma Rosa Coto Work Phone: [facility] Internal Medicine Work Phone: Start: 05-24-2022 Non-patient / Non-visit Dr. Alma Rosa Coto Work Phone: [facility] Start: 05-24-2022 End: 05-24-2022 Admission to same day surgery center Dr. Alma Rosa Coto Work Phone: [facility]Endoscopy Start: 05-24-2022 End: 05-24-[address] Alma Rosa Coto Work Phone: [facility] Work Phone: Start: 03-08-2022 End: 03-08-[address] Alma Rosa Coto Work Phone: [facility] Start: 03-02-2022 End: 03-02-[address] Jb Perez Work Phone: [facility] Start: 02-21-2022 End: 02-21-[address] Jb Perez Work Phone: [facility] Start: 01-30-2022 End: 01-30-[address] Jb Perez Work Phone: [facility] Start: 01-10-2022 End: 01-10-[address] Jb Perez Work Phone: [facility], [facility] Start: 01-10-2022 End: 01-10-[address] Jb Perez Work Phone: [facility] Procedures Date Procedure Procedure Detail Performing Clinician Start: 04-08-2025 Dual energy X-ray absorptiometry Dr. Alma Rosa Coto MD Work Phone: Start: 02-21-2023 Screening mammography Carlos Coto Work Phone: Start: 05-24-[address] Alma Rosa Coto Work Phone: Start: 01-30-2022 Dual energy X-ray absorptiometry Dr. Jb Perez Work Phone: Start: 01-30-2022 Screening mammography Carlos Perez Work Phone: Plan of Treatment Date Care Activity Detail Author Start: 05-24-2022 Patient discharge [facility] Work Phone: Start: 03-02-2022 Iv infusion therapy/prophylaxis /dx 1st to 1 hr THER/PROPH/DIAG IV INF INIT [facility] Work Phone: Start: 01-10-2022 Patient referral [facility] Work Phone: CBC W Auto Different ial panel - Blood [facility] Lipid 1996 panel - S myles or Plasma [facility] MG Breast - bilatera l Screening [facility] Patient referral [facility] Work Phone: [facility] Immunizations Immunization Date Immunization Notes Care Provider Fa cili 07-01-2023 influenza, injectabl e, quadrivalent, preservative free Dr. Alma Rosa Coto MD Work Phone: [facility] 07-23-2021 Covid (Pfizer) Dr. Jb Perez Work Phone: [facility] 07-23-2021 Influenza, injectabl e, [facility]in [place] Canine Kidney, preservative free, quadrivalent Dr. Jb Perez Work Phone: [facility] 11-18-2020 Covid (Pfizer) Dr. Jb Perez Work Phone: [facility] 10-28-2020 Covid (Pfizer) Dr. Jb Perez Work Phone: [facility] 04-20-2020 influenza, injectabl e, quadrivalent, preservative free Dr. Alma Rosa Coto MD Work Phone: [facility] 04-20-2020 influenza, seasonal, injectable Dr. Jb Perez Work Phone: [facility] 10-14-2019 influenza, injectabl e, quadrivalent, preservative free Dr. Alma Rosa Coto MD Work Phone: [facility] 10-14-2019 influenza, seasonal, injectable Dr. Jb Perez Work Phone: [facility] 07-07-2018 influenza, injectabl e, quadrivalent, preservative free Dr. Alma Rosa Coto MD Work Phone: [facility] 07-07-2018 influenza, seasonal, injectable Dr. Jb Perez Work Phone: [facility] 08-01-2017 influenza, injectabl e, quadrivalent, preservative free Dr. Alma Rosa Coto MD Work Phone: [facility] 08-01-2017 influenza, seasonal, injectable Dr. Jb Perez Work Phone: [facility] 05-17-2016 influenza, injectabl e, quadrivalent, preservative free Dr. Alma Rosa Coto MD Work Phone: [facility] 05-17-2016 influenza, seasonal, injectable Dr. Jb Perez Work Phone: [facility] 11-03-2014 hepatitis B vaccine, pediatric or pediatric/adolescent dosage Dr. Jb Perez Work Phone: [facility] 06-10-2014 hepatitis B vaccine, pediatric or pediatric/adolescent dosage Dr. Jb Perez Work Phone: [facility] 04-08-2014 hepatitis B vaccine, pediatric or pediatric/adolescent dosage Dr. Jb Perez Work Phone: [facility] 02-10-2014 hepatitis B vaccine, pediatric or pediatric/adolescent dosage Dr. Jb Perez Work Phone: [facility] 12-14-[address] Jb Perez Work Phone: [facility] 11-30-2013 hepatitis B vaccine, pediatric or pediatric/adolescent dosage Dr. Jb Perez Work Phone: [facility] 10-16-2010 hepatitis B vaccine, adult dosage Dr. Jb Perez Work Phone: [facility] 09-13-2009 novel [id number], preservative-free, injectable Dr. Jb Perez Work Phone: [facility] Payers Date Payer Category Payer Medicare [id number] 2024 Self-pay [id number] 2024 [id number] 2016 Unknown [id number] Private Health Insurance [id number] Unknown [id number] 2.16.8 [id number] Unknown [id number] 2.16.8 [id number] Unknown [id number] 2.16.8 [id number] Unknown [id number] 2.16.8 [id number] Unknown [id number] 2.16.8 [id number] Unknown [id number] 2.16.8 [id number] Unknown [id number] 2.16.8 [id number] Unknown [id number] 2.16.8 [id number] Unknown [id number] 2.16.8 [id number] Social History Date Type Detail Facility Start: 01-10-2022 End: 01-24-2023 Tobacco smoking status ILIS Unknown if ever smoked [facility] Start: 1955 Sex Assigned At Female [facility] Start: 01-27-2024 End: 04-20-2025 Tobacco smoking status NHIS Ex-smoker (finding) [facility] Goals Date Patient Goal Desired Activity /State Mental Status Date Assessment Result Facility 04-26-2025 Cognitive function Voice/Name [facility] Work Phone: 03-25-2023 Cognitive function Voice/Name [facility] Work Phone: 05-24-2022 Cognitive function Voice/Name [facility] Work Phone: 03-02-2022 Cognitive function Level Of Cons ciousness Awake;Alert;Appropriate;Follow s Commands [facility] Work Phone: Evaluation note 04-20-2025 Note Date & Type Note Facility 04-20-2025 Evaluation note Diagnosis Onset Date Resolution Depression with anxiety acute S eptember 2024 2:27pm GERD (gastroesophageal reflux disease) acute April 20 2:27pm Osteoporosis acute April 2:27pm RLS (restless legs syndrome) acute April 20 025 2:27pm Cobalamin deficiency noneactive Apr 2:27pm Night sweats noneactive April 2:27pm Abnormal EKG noneactive April 2:27pm Screening for breast cancer noneactive April 20 2:27pm [facility] Work Phone: Evaluation note Note Date & Type Note Facility Evaluation note Diagnosis Onset Date Depression with anxiety acut e GERD (gastroesophageal reflux disease) acute Osteopenia acute Establishing care with new d octor, encounter for noneactive Bilateral leg pain noneactiv e Screening for breast cancer noneactive [facility] Work Phone: Evaluation note Note Date & Type Note Facility Evaluation note Diagnosis Onset Date Depression with anxiety acut e GERD (gastroesophageal reflux disease) acute Osteopenia resolved Establishing care with new d octor, encounter for noneactive Bilateral leg pain noneactiv e Screening for breast cancer noneactive Depression with anxiety acut e GERD (gastroesophageal reflux disease) acute Osteoporosis acute Thyroglobulin antibody positive noneactive Bilateral leg pain noneactiv e Positive colorectal cancer s creening using Cologuard test noneactive [facility] Work Phone: Evaluation note Note Date & Type Note Facility Evaluation note Diagnosis Onset Date Depression with anxiety acut e GERD (gastroesophageal reflux disease) acute Osteoporosis acute Thyroglobulin antibody positive noneactive Bilateral leg pain noneactiv e Positive colorectal cancer s creening using Cologuard test noneactive GERD (gastroesophageal reflux disease) acute Positive colorectal cancer s creening using DNA-based stool test acute [facility] Work Phone: Evaluation note Note Date & Type Note Facility Evaluation note Diagnosis Onset Date Depression with anxiety acut e GERD (gastroesophageal reflux disease) acute Osteoporosis acute RLS (restless legs syndrome) acute Screening for cardiovascular condition noneactive Bilateral leg pain noneactiv e Screening for breast cancer noneactive [facility] Work Phone: Evaluation note Note Date & Type Note Facility Evaluation note No assessment information availa ble [facility] Work Phone: Evaluation note Note Date & Type Note Facility Evaluation note Diagnosis Onset Date Resolution Depression with anxiety acute S [id number] 2:27pm GERD (gastroesophageal reflux disease) acute April 20 2:27pm Osteoporosis acute April 2:27pm RLS (restless legs syndrome) acute April 20 2:27pm Cobalamin deficiency noneactive Apr 2:27pm Night sweats noneactive April 2:27pm Screening for breast cancer noneactive April 20 2:27pm [facility] Work Phone: Hospital Discharge instructions Note Date & Type Note Facility Hospital Discharge instructions [facility] Work Phone: Hospital Discharge instructions Note Date & Type Note Facility Hospital Discharge instructions [facility] Work Phone: Reason for referral (narrative) Note Date & Type Note Facility Reason for referral (narrative) No reason for referral information available [facility] Work Phone: Chief Complaint and Reason for Visit Chief Complaint IN MOLD COATER, EST CARE, NEEDS PPW SCREENING/OSTEO Reason for Visit Depression with anxi ety GERD (gastroesophageal reflux disease) Osteopenia Establishing care with new doctor, encounter for Bilateral leg pain Screening for breast cancer Chief Complaint IN MOLD COATER, EST CARE, NEEDS PPW SCREENING/OSTEO 4 wk fu RECLAST Reason for Visit Depression with anxi ety GERD (gastroesophageal reflux disease) Osteopenia Establishing care with new doctor, encounter for Bilateral leg pain Screening for breast cancer Depression with anxiety GERD (gastroesophageal reflux disease) Osteoporosis Thyroglobulin antibody positive Bilateral leg pain Positive colorectal cancer screening using Cologuard test Chief Complaint SCREENING/OSTEO 4 wk fu RECLAST Gastroesophageal reflux disease (GERD) Reason for Visit Depression with anxi ety GERD (gastroesophageal reflux disease) Osteoporosis Thyroglobulin antibody positive Bilateral leg pain Positive colorectal cancer screening using Cologuard test GERD (gastroesophageal reflux disease) Positive colorectal cancer screening using DNA-based stool test Chief Complaint 6 M FU SCREENING Age-related osteoporosis without current pathologi Reason for Visit Depression with anxi ety GERD (gastroesophageal reflux disease) Osteoporosis RLS (restless legs syndrome) Screening for cardiovascular condition Bilateral leg pain Screening for breast cancer Chief Complaint 6 M FU SCREENING Age-related osteoporosis without current pathologi RECLAST Reason for Visit Depression with anxi ety GERD (gastroesophageal reflux disease) Osteoporosis RLS (restless legs syndrome) Screening for cardiovascular condition Bilateral leg pain Screening for breast cancer Chief Complaint Admit Date OSTEO, [facility] DR[facility]ERAP[facility] March 1:19pm PREOP April 08, 2025 1: 41pm Chief Complaint Admit Date OSTEO, [facility] DRUG THERAPY March 1:19pm PREOP April 08, 2025 1: 41pm 6 M FU April 20, 2025 2:27pm Reason for Visit Admit Date Depression with anxiety April 20, 2 025 2:27pm GERD (gastroesophageal reflux disease) S [id number] 2:27pm Osteoporosis April 20, 2025 2:27pm RLS (restless legs syndrome) April 202024 2:27pm Cobalamin deficiency April 20, 2025 2:27pm Night sweats April 20, 2025 2:27pm Screening for breast cancer April 2:27pm Chief Complaint Admit Date OSTEO, [facility] DRUG THERAPY March 1:19pm PREOP April 08, 2025 1: 41pm 6 M FU April 20, 2025 2:27pm RECLAST April 26, 2025 1:30pm Reason for Visit Admit Date Depression with anxiety April 20 025 2:27pm GERD (gastroesophageal reflux disease) S [id number] 2:27pm Osteoporosis April 20, 2025 2:27pm RLS (restless legs syndrome) April 202024 2:27pm Cobalamin deficiency April 20, 2025 2:27pm Night sweats April 20, 2025 2:27pm Abnormal EKG April 20, 2025 2:27pm Screening for breast cancer April 2:27pm Family History No Family History Records Found Relationship Condition Age at Onset Recorded Date/T liz father Diabetes mellitus Unknown mother Graves' disease Unknown Fibromyalgia Unknown Relationship Condition Age at Onset Recorded Date/T liz father Diabetes mellitus Unknown Myocardial infarction Unknown mother Graves' disease Unknown Fibromyalgia Unknown Advance Directives No Advanced Directives Records Found Advance Directive Response Recorded Date/ Time Advance Directives No September 10:10am Living Will No July 17, 2 017 3:37pm Power of Drive Worker No July 17, 2017 3:37pm Advance Directive Response Recorded Date/ Time Advance Directives No September 10:10am Living Will No May 21 2 1:06pm Power of Drive Worker No May 21 022 1:06pm Advance Directive Response Recorded Date/ Time Advance Directives No September 10:10am Summary Purpose Additional Source Comments Goals (unrecognized section and content) Goals may be documented in a n alternate sectionGoals may be documented in an alternate sectionGoals may be documented in an alternate sectionGoals may be documented in an alternate sectionGoals may be documented in an alternate sectionGoals may be documented in an alternate sectionGoals may be documented in an alternate sectionGoals may be documented in an alternate section Care Teams (unrecognized sec tion and content) Team Status: Active Member Role Status Dates Dr. Jb Perez MD Family Provider Active Dr. Alma Rosa Coto MD Primary Care Provider Active Team Status: Inactive Member Role Status Dates Dr. Alma Rosa Coto MD Primary Care Pro vider, Attending Provider, Referring Provider Active Team Status: Active Member Role Status Dates Dr. Alma Rosa Coto MD Primary Care Pro vider, Attending Provider, Referring Provider Active Team Status: Active Member Role/Relationship Status Dates Dr. Alma Rosa Coto MD Primary Care Provider Active Team Status: Inactive Member Role/Relationship Status Dates Dr. Alma Rosa Coto MD Primary Care Provider Active Start: April 08, 2025 End: April 08, 2025 Dr. Alma Rosa Coto MD Attending Provider Active Start: April 08, 2025 End: April 08, 2025 Dr. Alma Rosa Coto MD Referring Provider Active Start: April 08, 2025 End: April 08, 2025 Team Status: Active Member Role/Relationship Status Dates Dr. Alma Rosa Coto MD Primary Care Provider Active Start: April 08, 2025 Dr. Alma Rosa Coto MD Referring Provider Active Start: April 08, 2025 Dr. Ashlee Pickard MD Attending Provider Activ e Start: April 08, 2025 Team Status: Inactive Member Role/Relationship Status Dates Dr. Alma Rosa Coto MD Primary Care Provider Active Start: April 20, 2025 End: April 20, 2025 Dr. Alma Rosa Coto MD Attending Provider Active Start: April 20, 2025 End: April 20, 2025 Dr. Alma Rosa Coto MD Referring Provider Active Start: April 20, 2025 End: April 20, 2025 Team Status: Inactive Member Role/Relationship Status Dates Dr. Alma Rosa Coto MD Primary Care Provider Active Start: April 26, 2025 End: April 26, 2025 Dr. Alma Rosa Coto MD Attending Provider Active Start: April 26, 2025 End: April 26, 2025 Dr. Alma Rosa Coto MD Referring Provider Active Start: April 26, 2025 End: April 26, 2025 INFORMATION SOURCE (unrecogn ized section and content) DATE CREATED AUTHOR 05/06/2025 [facility] FOR RECORDS PERTAINING TO PATIENTS WHO ARE OR HAVE BEEN ENROLLED IN A CHEMICAL DEPENDENCY/SUBSTANCEABUSE PROGRAM, SOME INFORMATION MAY BE OMITTED. This clinical summary was aggregated from multiple sources. Caution should be exercised in using it in the provision of clinical care. This summary normalizes information from multiple sources, and as a consequence, information in this document may materially change the coding, format and clinical context of patient data. In addition, data may be omitted in some cases. CLINICAL DECISIONS SHOULD BE BASED ON THE PRIMARY CLINICAL RECORDS. [employer] provides no warranty or guarantee of the accuracy or completeness of information in this document.
--- OUTSIDE RECORDS SUMMARY | 2025-05-11 06:36 | XMS RPT_ITS | CCD ---
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 Jb Perez Chi Primary Care Provider Dr. Jb Perez Chi Referring Provider Dr. Alma Rosa Coto Attending Provider [phone] Dr. Alma Rosa Coto Primary Care Provider Dr. Alma Rosa Coto Referring Provider [phone] Dr. Alma Rosa Coto Attending Provider [phone] Dank RISK ASSESSOR, RISK ASSESSOR-C Martina Roberts Attending Provider [phone] Friend, Dr. Grimaldo Attending Provider [phone] Friend, Dr. Grimaldo Other Provider [phone] Alma Rosa Coto Primary Care Provider [...] Unavailable Alma Rosa Coto Primary Care Unavailable Zahl, Alma Rosa Attending Unavailable Chica, Alma Rosa Referring Unavailable Zahl, Alma Rosa Referring Unavailable Chica, Alma Rosa Primary Care Unavailable Ashlee Pickard Attending Unavailabl e Chica, Alma Rosa Referring Unavailable Chica, Alma Rosa Primary Care Unavailable Chica, Alma Rosa Attending Unavailable Chica, Alma Rosa Referring Unavailable Dion Henson Attending Unavailable Zahl, Alma Rosa Primary Care Unavailable Chica, Alma Rosa Referring Unavailable Chica, Alma Rosa Attending Unavailable Chica, Alma Rosa Primary Care Unavailable Zahl, Alma Rosa Referring Unavailable Chica, Alma Rosa Primary Care Unavailable Chica, Alma Rosa Attending Unavailable Zahl, Alma Rosa Attending Unavailable Zahl, Alma Rosa Primary Care Unavailable Zahl, Alma Rosa Referring Unavailable Allergies Allergy Classification Reported Allergen(s) Allergy Type Date of Onset Reaction(s) Facility (9 sources) Lactose Drug Allergy 2 Nausea/Vom/Diar madelenie [facility] (10 sources) Promethazine; Translations: [promethazine HCl] Drug Allergy [address] [facility] Comment on above: HALLUCINATIONS (1 source) Lactose Drug Allergy [address] [facility] Repository Medications Current Medications Medication Drug [...] injection (7 sources) Bisphosphonate Start: 02-25-2023 Zoledronic Vfui-Wksnlnad-Ugjpz (Reclast) 5 mg/100 mL piggyback Active 1 [...] Start: 06-28-2017 End: 01-10-2022 Ergocalciferol (Vitamin D2) 65237 U capsule Discontinued 1 NMA PO EVERY [...] 5 Chronic Other aftercare (1 source) Other senior care (current) drug therapy; Translations: [Other terminal superintendent (current) drug therapy] Onset: 5 Episodic Other [...] Vis sonia 04-16-2025 Internal Medicine Office Visit [facility] [address] [place] [address] [place], [place] [address] OFFICE VISIT Date of Service: 04/20/25 MR#: [id number] Acct: [id number] Name: SELVIN ARRINGTON Rep #: [id number] : 1955 Provider: Dr. 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 HPI HPI Chief Complaint: 6 M [...] been d (more content not included)... Normal [facility] Electrocardiogram reportOrde red By: Ashlee Pickard on 04-12-2025 EKG study [facility] Cardiovascular Services [address] [place] [address] 12 Lead EKG 04/08/25 1341 MR#: [id number] Acct: [id number] Name: SELVIN ARRINGTON Rep #:[id number] : 1955 69 From: Ashlee shepherd MD [...] Anterior leads Confirmed by MELLY BERMEO, ANJELICA ([id number]), video tape editor ANGELY GARCIA ([id number]) on 04/12/2025 6:33:27 AM Referred By: Alma Rosa Coto Confirmed By: ANJELICA PICKARD MD 04/12/25 0633 Date _ Ashlee Pickard MD CC: Dr. Alma Rosa Coto MD ~ Signed [facility] Work Phone: 12 Lead EKGon 04-08-2025 12 Lead EKG [facility] Cardiovascular Services [address] [place] [address] 12 Lead EKG 04/08/25 1341 MR#: [id number] Acct: [id number] Name: SELVIN ARRINGTON Rep #: [id number] : 1955 69 From: Ashlee Pickard MD Attending Dr: Dr. Alma Rosa Coto [...] Anterior leads Confirmed by MELLY BERMEO, ANJELICA ([id number]), video tape editor ANGELY GARCIA ([id number]) on 04/12/2025 6:33:27 AM Referred By: Alma Rosa Coto Confirmed By: ANJELICA PICKARD MD 04/12/25 0633 Date Ashlee Pickard MD CC: Dr. Alma Rosa Coto MD Signed Normal [facility] Bone density reportOrdered B y: Tony Castillo on 04-08-2025 Study report Skeletal system DXA [facility] Imaging Services [address] [place] [address] Dexa Bone Density Study MR#: [id number] Acct: [id number] Name: SELVIN ARRINGTON Rep #: [id number] : 1955 F 69 From: Blayne Castillo MD PCP: Dr. Alma Rosa Coto MD Status: REG CLI Study:Dexa Bone Density Study Date of Exam: 04/08/25 Exam# [id number] Ordering Dr: Alma Rosa Coto MD PROCEDURE: [...] Recommend follow-up as clinically warranted. Reading Location: [id number] CC: Dr. 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 Dexa Bone Density Studyon Dexa Bone Density Study [facility] Imaging Services [address] [place] [address] Dexa Bone Density Study MR#: [id number] Acct: [id number] Name: SELVIN ARRINGTON Rep #: [id number] : 1955 F 69 From: Tony garcia MD PCP: Dr. Alma Rosa Coto MD Status: REG CLI Study: Dexa Bone Density Study Date of Exam: 04/08/25 Exam# [id number] Ordering Dr: Alma Rosa Coto MD PROCEDURE: [...] Recommend follow-up as clinically warranted. Reading Location: [id number] CC: Dr. Alma Rosa Coto MD Forming Machine Upkeep Mechanic: Signed Normal [facility] Internal Medicine Office Vis [facility] 10-15-2024 Internal Medicine Office Visit [facility] [address] [place] [address] OFFICE VISIT Date of Service: 10/19/24 MR#: [id number] Acct: [id number] Name: SELVIN ARRINGTON Rep #: [id number] : 1955 Provider: Dr. Alma Rosa alvarez MD Age/Sex: 68/F Location[place] [facility] Status: Signed Intake Vital Signs 07/03/24 13:56 [...] FOLLOW UP Chief Complaint: 6 M FU Culinary Assistant Required: No Accompanied by: Self Is patient [...] without problems. She reports she saw a avionics engineer who removed the lesion on her ear [...] breath, dysp (more content not included)... Normal [facility] Urgent Care Visit Reporton 1 09-02-2023 Urgent Care Visit Report [facility] [address], [address] [place] [address] OFFICE VISIT Date of Service: 07/03/24 MR#: [id number] Acct: [id number] Name: SELVIN ARRINGTON Rep #: [id number] : 1955 Provider: LIZZETH Mcdaniel Age/Sex: 68/F Location[place] [facility] Status: Signed Intake Vital Signs 04/24/24 14:47 [...] Cosigner Signature: Date (if applicable) CC: Normal [facility] Absolute lymphocyte counton 01-10-2022 Lymphocytes Auto (Unsp spec) [#/Vol] 1.38 10*3/uL 0.83-4.[address] [facility] Work Phone: Basophil percentageon 2021 Basophils/100 WBC (Bld) 0.8 % 0-[address] [facility] Work Phone: Bilirubin [Mass/Vol] 0.20 mg/dL 0.20-1.00 [facility] Work Phone: Comment on above: For patients on eltr ombopag therapy, use of Dimension [place] TBIL is not recommended. Chloride [Moles/Vol] 108 mmol/L 98-107 [facility] Work Phone: Eosinophils/100 WBC (Bld) 1.5 % 0-[address] [facility] Work Phone: Glucose [Mass/Vol] 107 mg/dL 74-106 [facility] Work Phone: Comment on above: Fasting Glucose resu lt from 100 to 125 mg/dL suggests IMPAIRED HOMEOSTASIS per A.D.A. criteria. Neutrophils (Bld) [#/Vol] 4.8 10*3/uL 2.0-7.[address] [facility] Work Phone: Neutrophils/100 WBC (Bld) 67.9 % 47-[address] [facility] Work Phone: Potassium [Moles/Vol] 4.8 mmol/L 3.5-5.1 [facility] Work Phone: Protein [Mass/Vol] 7.5 g/dL 6.4-8.2 [facility] Work Phone: Sodium [Moles/Vol] 138 mmol/L 136-145 [facility] Work Phone: WBC (Bld) [#/Vol] 7.1 10*3/uL 4.4-11.0 [facility] Work Phone: Blood erythrocytes count (nu mber/volume)on 01-10-2022 RBC (Bld) [#/Vol] 4.39 10*6/uL 4.2-5.4 [facility] Work Phone: Blood hemoglobin measurement (mass/volume)on 01-10-2022 Hemoglobin (Bld) [Mass/Vol] 12.4 g/dL 12.0-15.[address] [facility] Work Phone: Blood lymphocytes/100 leukoc yteson 01-10-2022 Lymphocytes/100 WBC (Bld) 19.4 % 19-[address] [facility] Work Phone: Blood monocytes/100 leukocyt eson 01-10-2022 Monocytes/100 WBC (Bld) 10.1 % 0-[address] [facility] Work Phone: Blood platelet mean volumeon 01-10-2022 Platelet mean volume (Bld) [Entitic vol] 9.4 fL 6.2-12.[address] [facility] Work Phone: Determination of erythrocyte mean corpuscular volume (MCV)on 01-10-2022 MCV (RBC) [Entitic vol] 87.5 fL 81-[address] [facility] Work Phone: Hematocrit Auto (Bld) [Volum e fraction]on 01-10-2022 Hematocrit (Bld) [Volume fraction] 38.4 % 37-[address] [facility] Work Phone: Laboratory - Chemistry and C hemistry - challengeon 01-10-2022 ALP [Catalytic activity/Vol] 130 U/L 45-[address] [facility] Work Phone: ALT [Catalytic activity/Vol] 38 U/L 13-[address] [facility] Work Phone: CO2 [Moles/Vol] 25.0 mmol/L 21.0-32.[address] [facility] Work Phone: Globulin (S) [Mass/Vol] 3.8 g/dL 2.2-4.[address] [facility] Work Phone: Urea nitrogen/Creatinine [Mass ratio] 23.0 mg/mg 10-[address] [facility] Work Phone: Laboratory - Hematology and Cell countson 01-10-2022 Erythrocyte distribution width (RBC) [Entitic vol] 45.8 fL 35.1-43.[address] [facility] Work Phone: Erythrocyte distribution width (RBC) [Ratio] 14.3 % 11.6-14.[address] [facility] Work Phone: Immature granulocytes/100 WBC (Bld) 0.300 % 0.0-0.[address] [facility] Work Phone: Comment on above: IG% - Immature Granu locytes (promyelocytes, myelocytes and metamyelocytes) > 1% indicates that a LEFT SHIFT is Present. MCH (RBC) [Entitic mass] 28.2 pg 27.0-32.[address] [facility] Work Phone: Nucleated RBC/100 WBC (Bld) [Ratio] 0 % 0-[address] [facility] Work Phone: MCHC Auto (RBC) [Mass/Vol]on 01-10-2022 MCHC (RBC) [Mass/Vol] 32.3 g/dL 32-36 [facility] Work Phone: No Panel Informationon 01-10 Estimated GFR (MDRD) Amer 95 mL/min >[address] [facility] Work Phone: Comment on above: GFR Calc Estimated GFR (MDRD) Non-Af Amer 78 mL/min >[address] [facility] Work Phone: Comment on above: Non- GFR Calc Platelets bldon 01-10-2022 Platelets (Bld) [#/Vol] 346 10*3/uL 150-[address] [facility] Work Phone: Serum or plasma albumin karlie urement (mass/volume)on 01-10-2022 Albumin [Mass/Vol] 3.7 g/dL 3.2-5.0 [facility] Work Phone: Serum or plasma albumin/glob ulin mass ratioon 01-10-2022 Albumin/Globulin [Mass ratio] 1.0 {ratio} 0.9-2.[address] [facility] Work Phone: Serum or plasma calcium karlie urement (mass/volume)on 01-10-2022 Calcium [Mass/Vol] 9.1 mg/dL 8.5-10.1 [facility] Work Phone: Serum or plasma creatinine m easurement (mass/volume)on 01-10-2022 Creatinine [Mass/Vol] 0.78 mg/dL 0.55-1.02 [facility] Work Phone: Comment on above: The validity of the calculated GFR & GFRAA in patients over 70 years has not been determined. Clinical correlation is essential. Serum or plasma urea nitroge n measurement (mass/volume)on 01-10-2022 Urea nitrogen [Mass/Vol] 18 mg/dL 7-[address] [facility] Work Phone: Thin prep Papanicolaou smear with manual screeningon 01-10-2022 Thin prep Papanicolaou smear with manual screening 22 U/L 15-[address] [facility] Work Phone: Thin prep Papanicolaou smear with manual screening 5 5-[address] [facility] Work Phone: Vital Signs Date Time Vital Sign Value Performing Clinician Faci lity 04-26-2025 14:20-0400 Diastolic blood pressure 65 mm[Hg] Dr. Alma Rosa Coto MD Work Phone: [facility] 04-26-2025 14:20-0400 Heart rate 87 /min Dr. Alma Rosa Coto MD Work Phone: [facility] 04-26-2025 14:20-0400 Respiratory rate 16 /min Dr. Alma Rosa Coto MD Work Phone: [facility] 04-26-2025 14:20-0400 SaO2% (BldA) [Mass fraction] 95 % Dr. Alma Rosa Coto MD Work Phone: [facility] 04-26-2025 14:20-0400 Systolic blood pressure 97 mm[Hg] Dr. Alma Rosa Coto MD Work Phone: [facility] 04-26-2025 13:49-0400 Body height 162.[address] Alma Rosa Coto MD Work Phone: [facility] 04-26-2025 13:49-0400 Body temperature 97 [degF] Dr. Alma Rosa Coto MD Work Phone: [facility] 04-20-2025 14:38-0400 Body height 162.[address] Alma Rosa Coto MD Work Phone: [facility] 04-20-2025 14:38-0400 Body mass index (BMI) [Ratio] 33.7 kg/m2 Dr. Alma Rosa Coto MD Work Phone: [facility] 04-20-2025 14:38-0400 Body temperature 98.3 [degF] Dr. Alma Rosa Coto MD Work Phone: [facility] 04-20-2025 14:38-0400 Body weight 89.[address] Alma Rosa Coto MD Work Phone: [facility] 04-20-2025 14:38-0400 Diastolic blood pressure 78 mm[Hg] Dr. Alma Rosa Coto MD Work Phone: [facility] 04-20-2025 14:38-0400 Heart rate 114 /min Dr. Alma Rosa Coto MD Work Phone: [facility] 04-20-2025 14:38-0400 Respiratory rate 16 /min Dr. Alma Rosa Coto MD Work Phone: [facility] 04-20-2025 14:38-0400 SaO2% (BldA) [Mass fraction] 98 % Dr. Alma Rosa Coto MD Work Phone: [facility] 04-20-2025 14:38-0400 Systolic blood pressure 132 mm[Hg] Dr. Alma Rosa Coto MD Work Phone: [facility] 03-25-2023 14:44-0400 Body temperature 97 [degF] Dr. Alma Rosa Coto Work Phone: [facility] 03-25-2023 14:44-0400 Diastolic blood pressure 49 mm[Hg] Dr. Alma Rosa Coto Work Phone: [facility] 03-25-2023 14:44-0400 Heart rate 94 /min Dr. Alma Rosa Coto Work Phone: [facility] 03-25-2023 14:44-0400 Respiratory rate 16 /min Dr. Alma Rosa Coto Work Phone: [facility] 03-25-2023 14:44-0400 SaO2% (BldA) [Mass fraction] 96 % Dr. Alma Rosa Coto Work Phone: [facility] 03-25-2023 14:44-0400 Systolic blood pressure 116 mm[Hg] Dr. Alma Rosa Coto Work Phone: [facility] 03-25-2023 14:19-0400 Body height 162.[address] Alma Rosa Coto Work Phone: [facility] 03-25-2023 14:19-0400 Body mass index (BMI) [Ratio] 34.7 kg/m2 Dr. Alma Rosa Coto Work Phone: [facility] 03-25-2023 14:19-0400 Body weight 91.[address] Alma Rosa Coto Work Phone: [facility] 01-24-2023 14:45-0400 Body height 162.[address] Alma Rosa Coto Work Phone: [facility] 01-24-2023 14:45-0400 Body mass index (BMI) [Ratio] 34.7 kg/m2 Dr. Alma Rosa Coto Work Phone: [facility] 01-24-2023 14:45-0400 Body temperature 98.2 [degF] Dr. Alma Rosa Coto Work Phone: [facility] 01-24-2023 14:45-0400 Body weight 91.[address] Alma Rosa Coto Work Phone: [facility] 01-24-2023 14:45-0400 Diastolic blood pressure 82 mm[Hg] Dr. Alma Rosa Coto Work Phone: [facility] 01-24-2023 14:45-0400 Heart rate 90 /min Dr. Alma Rosa Coto Work Phone: [facility] 01-24-2023 14:45-0400 Respiratory rate 14 /min Dr. Alma Rosa Coto Work Phone: [facility] 01-24-2023 14:45-0400 SaO2% (BldA) [Mass fraction] 97 % Dr. Alma Rosa Coto Work Phone: [facility] 01-24-2023 14:45-0400 Systolic blood pressure 112 mm[Hg] Dr. Alma Rosa Coto Work Phone: [facility] 05-24-2022 10:55-0400 Body temperature 98.3 [degF] Dr. Alma Rosa Coto Work Phone: [facility] Work Phone: 05-24-2022 10:55-0400 Diastolic blood pressure 72 mm[Hg] Dr. Alma Rosa Coto Work Phone: [facility] Work Phone: 05-24-2022 10:55-0400 Heart rate 91 /min Dr. Alma Rosa Coto Work Phone: [facility] Work Phone: 05-24-2022 10:55-0400 Respiratory rate 16 /min Dr. Alma Rosa Coto Work Phone: [facility] Work Phone: 05-24-2022 10:55-0400 SaO2% (BldA) [Mass fraction] 100 % Dr. Alma Rosa Coto Work Phone: [facility] Work Phone: 05-24-2022 10:55-0400 Systolic blood pressure 118 mm[Hg] Dr. Alma Rosa Coto Work Phone: [facility] Work Phone: 05-24-2022 09:06-0400 Body height 162.[address] Alma Rosa Coto Work Phone: [facility] Work Phone: 05-24-2022 09:06-0400 Body mass index (BMI) [Ratio] 34.7 kg/m2 Dr. Alma Rosa Coto Work Phone: [facility] Work Phone: 05-24-2022 09:06-0400 Body weight 91.[address] Alma Rosa Coto Work Phone: [facility] Work Phone: 03-08-2022 13:38-0400 Body mass index (BMI) [Ratio] 33.4 kg/m2 Dr. Alma Rosa Coto Work Phone: [facility] Work Phone: 03-08-2022 13:38-0400 Body weight 91.[address] Alma Rosa Ctoo Work Phone: [facility] Work Phone: 03-08-2022 13:38-0400 Diastolic blood pressure 87 mm[Hg] Dr. Alma Rosa Coto Work Phone: [facility] Work Phone: 03-08-2022 13:38-0400 Heart rate 99 /min Dr. Alma Rosa Coto Work Phone: [facility] Work Phone: 03-08-2022 13:38-0400 SaO2% (BldA) [Mass fraction] 94 % Dr. Alma Rosa Coto Work Phone: [facility] Work Phone: 03-08-2022 13:38-0400 Systolic blood pressure 131 mm[Hg] Dr. Alma Rosa Coto Work Phone: [facility] Work Phone: 03-02-2022 14:00-0400 Body temperature 98.1 [degF] Dr. Jb Perez Work Phone: [facility] Work Phone: 03-02-2022 14:00-0400 Diastolic blood pressure 83 mm[Hg] Dr. Jb Perez Work Phone: [facility] Work Phone: 03-02-2022 14:00-0400 Heart rate 79 /min Dr. Jb Perez Work Phone: [facility] Work Phone: 03-02-2022 14:00-0400 Respiratory rate 16 /min Dr. Jb Perez Work Phone: [facility] Work Phone: 03-02-2022 14:00-0400 SaO2% (BldA) [Mass fraction] 92 % Dr. Jb Perez Work Phone: [facility] Work Phone: 03-02-2022 14:00-0400 Systolic blood pressure 117 mm[Hg] Dr. Jb Perez Work Phone: [facility] Work Phone: 02-21-2022 16:42-0400 Body height 165.[address] Jb Perez Work Phone: [facility] Work Phone: 02-21-2022 16:42-0400 Body mass index (BMI) [Ratio] 33.9 kg/m2 Dr. Jb Perez Work Phone: [facility] Work Phone: 02-21-2022 16:42-0400 Body temperature 98.8 [degF] Dr. Jb Perez Work Phone: [facility] Work Phone: 02-21-2022 16:42-0400 Body weight 92.[address] Jb Perez Work Phone: [facility] Work Phone: 02-21-2022 16:42-0400 Diastolic blood pressure 70 mm[Hg] Dr. Jb Perez Work Phone: [facility] Work Phone: 02-21-2022 16:42-0400 Heart rate 81 /min Dr. Jb Perez Work Phone: [facility] Work Phone: 02-21-2022 16:42-0400 Respiratory rate 18 /min Dr. Jb Perez Work Phone: [facility] Work Phone: 02-21-2022 16:42-0400 SaO2% (BldA) [Mass fraction] 99 % Dr. Jb Perez Work Phone: [facility] Work Phone: 02-21-2022 16:42-0400 Systolic blood pressure 128 mm[Hg] Dr. Jb Perez Work Phone: [facility] Work Phone: 01-30-2022 15:59-0400 Body height 165.[address] Jb Perez Work Phone: [facility] Work Phone: 01-10-2022 15:17-0400 Body mass index (BMI) [Ratio] 34.1 kg/m2 Dr. Jb Perez Work Phone: [facility] Work Phone: 01-10-2022 15:17-0400 Body temperature 98.5 [degF] Dr. Jb Perez Work Phone: [facility] Work Phone: 01-10-2022 15:17-0400 Body weight 92.[address] Jb Perez Work Phone: [facility] Work Phone: 01-10-2022 15:17-0400 Diastolic blood pressure 80 mm[Hg] Dr. Jb Perez Work Phone: [facility] Work Phone: 01-10-2022 15:17-0400 Heart rate 89 /min Dr. Jb Perez Work Phone: [facility] Work Phone: 01-10-2022 15:17-0400 Respiratory rate 14 /min Dr. Jb Perez Work Phone: [facility] Work Phone: 01-10-2022 15:17-0400 SaO2% (BldA) [Mass fraction] 99 % Dr. Jb Perez Work Phone: [facility] Work Phone: 01-10-2022 15:17-0400 Systolic blood pressure 112 mm[Hg] Dr. Jb Perez Work Phone: [facility] Work Phone: Encounters Encounter Date Encounter Type Care Provider Facility Start: 05-11-2025 ambulatory Alma Rosa Chica Facility :[facility] Start: 05-11-2025 ambulatory Alma Rosa Chica Facility :[facility] Start: 04-26-2025 End: 04-26-[address] Alma Rosa Coto MD -[facility] Work Phone: Start: 04-26-2025 End: 04-26-[address] Alma Rosa Coto MD Work Phone: -[facility] Start: 04-20-2025 End: 04-20-[address] Alma Rosa Coto MD -[facility] Work Phone: Start: 04-20-2025 End: 04-20-[address] Alma Rosa Coto MD Work Phone: -[facility] Start: 04-08-2025 Non-patient / Non-visit Dr. Ashlee Pickard MD -[facility] Work Phone: Start: 04-08-2025 End: 04-08-[address] Alma Rosa Coto MD Work Phone: -[facility]patient [facility] Start: 04-08-2025 End: 04-08-[address] Alma Rosa Coto MD -[facility] Work Phone: Start: 04-08-2025 End: 04-08-2025 ambulatory Alma Rosa Coto Facility:[facility] Start: 10-19-2024 End: 10-19-2024 ambulatory Alma Rosa Coto Facility:[facility] Start: 07-03-2024 End: 07-03-2024 ambulatory Alma Rosa Coto Facility:[facility] Start: 03-25-2023 End: 03-25-[address] Alma Rosa Coto Work Phone: [facility] Work Phone: Start: 03-25-2023 End: 03-25-[address] Alma Rosa Coto Work Phone: [facility] Work Phone: Start: 02-21-2023 End: 02-21-[address] Alma Rosa Coto Work Phone: [facility] Work Phone: Start: 02-21-2023 End: 02-21-[address] Alma Rosa Coto Work Phone: [facility]-Outpatient Bone Densitometry Work Phone: Start: 01-24-2023 End: 01-24-[address] Alma Rosa Coto Work Phone: [facility] Work Phone: Start: 05-24-2022 Non-patient / Non-visit Dr. Alma Rosa Coto Work Phone: [facility] Start: 05-24-2022 End: 05-24-2022 Admission to same day surgery center Dr. Alma Rosa Coto Work Phone: [facility]-Endoscopy Start: 05-24-2022 End: 05-24-[address] Alma Rosa Coto Work Phone: [facility] Work Phone: Start: 03-08-2022 End: 03-08-[address] Alma Rosa Coto Work Phone: [facility] Start: 03-02-2022 End: 03-02-[address] Jb Perez Work Phone: [facility] Start: 02-21-2022 End: 02-21-[address] Jb Perez Work Phone: [facility] Internal Medicine Start: 01-30-2022 End: 01-30-[address] Jb Perez Work Phone: [facility]-Outpatient Bone Densitometry Start: 01-10-2022 End: 01-10-[address] Jb Perez Work Phone: [facility]-Laboratory, [facility] Start: 01-10-2022 End: 01-10-[address] Jb Perez Work Phone: [facility] Internal Medicine Procedures Date Procedure Procedure Detail [...] Activity Detail Author Start: 05-24-2022 Patient discharge [facility] Work Phone: Start: 03-02-2022 Iv infusion therapy/prophylaxis /dx 1st to 1 hr THER/PROPH/DIAG IV INF INIT [facility] Work Phone: Start: 01-10-2022 Patient referral [facility] Work Phone: CBC W Auto Different ial panel - Blood [facility] Lipid 1996 panel - S myles or Plasma [facility] MG Breast - bilatera l Screening [facility] Work Phone: [facility] Immunizations Immunization Date Immunization Notes Care Provider Fa cili 07-01-2023 influenza, injectabl e, quadrivalent, preservative free Dr. Alma Rosa Coto MD Work Phone: [facility] 07-23-2021 Covid (Pfizer) Dr. Jb Perez Work Phone: [facility] 07-23-2021 Influenza, injectabl e, Madin Chadwick Canine Kidney, preservative free, quadrivalent Dr. Jb Perez Work Phone: [facility] 11-18-2020 Covid (Pfizer) Dr. Jb Perez Work Phone: [facility] 10-28-2020 Covid (Pfizer) Dr. Jb Perez Work Phone: [facility] 04-20-2020 influenza, injectabl e, quadrivalent, preservative free Dr. Alma Rosa Coto MD Work Phone: [facility] 04-20-2020 influenza, seasonal, injectable Dr. Jb Perez Work Phone: [facility] 10-14-2019 influenza, injectabl e, quadrivalent, preservative free Dr. Alma Rosa Coto MD Work Phone: [facility] 10-14-2019 influenza, seasonal, injectable Dr. Jb Perez Work Phone: [facility] 07-07-2018 influenza, injectabl e, quadrivalent, preservative free Dr. Alma Rosa Coto MD Work Phone: [facility] 07-07-2018 influenza, seasonal, injectable Dr. Jb Perez Work Phone: [facility] 08-01-2017 influenza, injectabl e, quadrivalent, preservative free Dr. Alma Rosa Coto MD Work Phone: [facility] 08-01-2017 influenza, seasonal, injectable Dr. Jb Perez Work Phone: [facility] 05-17-2016 influenza, injectabl e, quadrivalent, preservative free Dr. Alma Rosa Coto MD Work Phone: [facility] 05-17-2016 influenza, seasonal, injectable Dr. Jb Perez Work Phone: [facility] 11-03-2014 hepatitis B vaccine, pediatric or pediatric/adolescent dosage Dr. Jb Perez Work Phone: [facility] 06-10-2014 hepatitis B vaccine, pediatric or pediatric/adolescent dosage Dr. Jb Perez Work Phone: [facility] 04-08-2014 hepatitis B vaccine, pediatric or pediatric/adolescent dosage Dr. Jb Perez Work Phone: [facility] 02-10-2014 hepatitis B vaccine, pediatric or pediatric/adolescent dosage Dr. Jb Perez Work Phone: [facility] 12-14-[address] Jb Perez Work Phone: [facility] 11-30-2013 hepatitis B vaccine, pediatric or pediatric/adolescent dosage Dr. Jb Perez Work Phone: [facility] 10-16-2010 hepatitis B vaccine, adult dosage Dr. Jb Perez Work Phone: [facility] 09-13-2009 novel [id number], preservative-free, injectable Dr. Jb Perez Work Phone: [facility] Payers Date Payer Category Payer Medicare [id number] 2024 Self-pay [id number] 2024 [id number] 2016 Unknown [id number] Private Health Insurance [id number] Unknown [id number] 2.16.8 [id number] Unknown [id number] 2.16.8 [id number] Unknown [id number] 2.16.8 [id number] Unknown [id number] 2.16.8 [id number] Unknown [id number] 2.16.8 [id number] Unknown [id number] 2.16.8 [id number] Unknown [id number] 2.16.8 [id number] Unknown [id number] 2.16.8 [id number] Unknown [id number] 2.16.8 [id number] Social History Date Type Detail Facility Start: 01-10-2022 End: 01-24-2023 Tobacco smoking status VTIS Unknown if ever smoked [facility] Start: 1955 Sex Assigned At Female [facility] Start: 01-27-2024 End: 04-20-2025 Tobacco smoking status NHIS Ex-smoker (finding) [facility] Goals Date Patient Goal Desired Activity /State Mental Status Date Assessment Result Facility 04-26-2025 Cognitive function Voice/Name [facility] Work Phone: 03-25-2023 Cognitive function Voice/Name [facility] Work Phone: 05-24-2022 Cognitive function Voice/Name [facility] Work Phone: 03-02-2022 Cognitive function Level Of Cons ciousness Awake;Alert;Appropriate;Follow s Commands [facility] Work Phone: Evaluation note 04-20-2025 Note [...] for breast cancer noneactive April 20 2:27pm [facility] Work Phone: Evaluation note Note Date & Type Note Facility Evaluation note Diagnosis Onset Date Depression with anxiety acut e GERD (gastroesophageal reflux disease) acute Osteopenia acute Establishing care with new d octor, encounter for noneactive Bilateral leg pain noneactiv e Screening for breast cancer noneactive [facility] Work Phone: Evaluation note Note Date [...] cancer s creening using Cologuard test noneactive [facility] Work Phone: Evaluation note Note Date & Type Note Facility Evaluation note Diagnosis Onset Date Depression with anxiety acut e GERD (gastroesophageal reflux disease) acute Osteoporosis acute Thyroglobulin antibody positive noneactive Bilateral leg pain noneactiv e Positive colorectal cancer s creening using Cologuard test noneactive GERD (gastroesophageal reflux disease) acute Positive colorectal cancer s creening using DNA-based stool test acute [facility] Work Phone: Evaluation note Note Date & Type Note Facility Evaluation note Diagnosis Onset Date Depression with anxiety acut e GERD (gastroesophageal reflux disease) acute Osteoporosis acute RLS (restless legs syndrome) acute Screening for cardiovascular condition noneactive Bilateral leg pain noneactiv e Screening for breast cancer noneactive [facility] Work Phone: Evaluation note Note Date & Type Note Facility Evaluation note No assessment information availa ble [facility] Work Phone: Evaluation note Note Date & Type Note Facility Evaluation note Diagnosis Onset Date Resolution Depression with anxiety acute S [id number] 2:27pm GERD (gastroesophageal reflux disease) acute April 20 2:27pm Osteoporosis acute April 2:27pm RLS (restless legs syndrome) acute April 20 2:27pm Cobalamin deficiency noneactive Apr 2:27pm Night sweats noneactive April 2:27pm Screening for breast cancer noneactive April 20 2:27pm [facility] Work Phone: Hospital Discharge instructions Note Date & Type Note Facility Hospital Discharge instructions [facility] Work Phone: Hospital Discharge instructions Note Date & Type Note Facility Hospital Discharge instructions [facility] Work Phone: Reason for referral (narrative) Note Date & Type Note Facility Reason for referral (narrative) No reason for referral information available 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.] section and content) DATE CREATED AUTHOR 05/06/2025 [facility] FOR RECORDS PERTAINING TO PATIENTS WHO ARE [...] BE BASED ON THE PRIMARY CLINICAL RECORDS. [employer] provides no warranty or guarantee of the accuracy or completeness of information in this document.
[2025-05-11 09:47] LABS: Hematocrit 41.2 % (37-47); Hemoglobin 13.5 g/dL (12.0-15.0); Immature Granulocytes Count 0.020 X10^3/uL (0.0-0.0); Mean Corp Hgb Conc 32.8 g/dL (32-36); Mean Corpuscular Volume 96.0 fL (81-99); Mean Platelet Vol. 9.2 fl (6.2-12.0); NRBC Flagged by Analyzer 0 % (0-5); Platelet Count 260 K/mm3 (150-450); RBC Distribution Width CV 13.4 % (11.6-14.6); RBC Distribution Width SD 47.4 fl (35.1-43.9); Red Blood Count 4.29 M/mm3 (4.2-5.4); White Blood Count 5.5 K/mm3 (4.4-11.0)
[2025-05-11 10:32] LABS: AST(SGOT) 24 U/L (<=31); Alanine Aminotransfer ALT/SGPT 16 U/L (<=34); Albumin, Serum 4.0 g/dL (3.4-4.8); Alkaline Phosphatase 112 U/L (35-104); Anion Gap 11 (5-15); BUN 15 mg/dL (4-19); BUN/Creat Ratio 19.7 RATIO (10-20); Calcium,Total 9.0 mg/dL (7.6-11.0); Carbon Dioxide 22.4 mmol/L (21.0-32.0); Chloride 108 mmol/L (98-108); Cholesterol 176 mg/dL (<=200); Globulin 2.3 g/dL (2.2-4.2); Glucose 101 mg/dL (70-99); Low Density Lipoprotein Calc. 92 mg/dL; Potassium 4.6 mmol/L (3.3-5.1); Triglycerides 61 mg/dL; Very Low Density Lipoprotein 12 mg/dL (5-40); Vitamin D,25 Hydroxy 59.0 ng/mL (30-100); cholesterol:hdl ratio screen 2.44
--- NOTE | 2025-05-11 15:15 | BI_ITS ---
EXAM: SCRN MAMM (CAD)W/MAHI BILAT DATE: 05/11/2025 CLINICAL HISTORY: F, Age 69 y/o , SCREENING No family history. Prior right needle breast biopsy. TECHNIQUE: Procedure Code: [id number] Modality: MG Procedure: SCRN MAMM (CAD)W/MAHI BILAT COMPARISON: Prior exam(s) dated April 17, 2024.. FINDINGS: TISSUE DENSITY: The breasts are heterogeneously dense, which may obscure small masses. Bilateral Breast Mammographic Findings: Stable 3.1 cm x 2.6 cm well-defined nodule in the upper slightly medial aspect of the right breast. A tissue clip marker is seen within it from prior biopsy. No suspicious masses, areas of developing architectural distortion, or suspicious calcifications. There has been no significant interval change. BI/SCRN MAMM (CAD)W/MAHI BILAT IMPRESSION: Stable bilateral screening mammogram. OVERALL FINAL ASSESSMENT BI-RADS 2: BENIGN RECOMMENDATION: Routine annual follow-up in 1 Year Additional Recommendation none A letter with findings and recommendations will be mailed to the patient. Reading Location: [place] [address]
--- NOTE | 2025-05-11 15:15 | BI_ITS ---
EXAM: SCRN MAMM (CAD)W/MAHI BILAT DATE: 05/11/2025 CLINICAL HISTORY: F, Age 69 y/o , SCREENING No family history. Prior right needle breast biopsy. TECHNIQUE: Procedure Code: [id number] Modality: MG Procedure: SCRN MAMM (CAD)W/MAHI BILAT COMPARISON: Prior exam(s) dated April 17, 2024.. FINDINGS: TISSUE DENSITY: The breasts are heterogeneously dense, which may obscure small masses. Bilateral Breast Mammographic Findings: Stable 3.1 cm x 2.6 cm well-defined nodule in the upper slightly medial aspect of the right breast. A tissue clip marker is seen within it from prior biopsy. No suspicious masses, areas of developing architectural distortion, or suspicious calcifications. There has been no significant interval change. BI/SCRN MAMM (CAD)W/MAHI BILAT IMPRESSION: Stable bilateral screening mammogram. OVERALL FINAL ASSESSMENT BI-RADS 2: BENIGN RECOMMENDATION: Routine annual follow-up in 1 Year Additional Recommendation none A letter with findings and recommendations will be mailed to the patient. Reading Location: [place] [address]
--- NOTE | 2025-05-11 20:15 | STRESSREP ---
Stress Test Report Pharmacologic myocardial perfusion stress test. 69-year-old lady with a history of abnormal. Resting EKG demonstrates normal sinus rhythm with a rate of 69 bpm. Premature ventricular complexes noted. Resting blood pressure is 122/88 mmHg. 0.4 mg of regadenoson was infused per usual protocol followed by rapid intravenous saline flush injection. Continuous EKG monitoring was performed. The maximum heart rate was 110 bpm which was 72% of max impacted heart rate the maximum workload was 1 metabolic equivalent. At rest there were no ST or T wave changes noted to suggest ischemia and at peak infusion nonspecific ST changes were noted which did not meet the criteria for ischemia. No clinical angina is noted. The final blood pressure was 116/70 mmHg. Myocardial perfusion protocol. 12 mCi of technetium 99m sestamibi was injected at rest. 0.4 mg of regadenoson was infused per usual protocol. At peak infusion 35.2 mCi of technetium 99m sestamibi was injected stress images were obtained stress and rest images were reconstructed and compared in the short axis vertical long and horizontal long axis. Gated images were also obtained. Perfusion SPECT analysis: Review of the stress images demonstrate normal uptake of tracer noted in all areas of the myocardium. The resting images similar demonstrated normal uptake of tracer noted in all areas of the myocardium. No areas of reversibility are noted to suggest ischemia and no previous infarct is noted. Gated SPECT analysis: The gated ejection fraction is 71%. Conclusion: Normal pharmacologic myocardial perfusion stress test. Preserved ejection fraction.
== END | disposition home or self-care (01) ==
PROVIDERS: PCP Internal Medicine; Referring Provider Internal Medicine; Visit Provider Internal Medicine
DX: Z12.31 Encounter for screening mammogram for malignant neoplasm of breast (principal); K21.9 Gastro-esophageal reflux disease without esophagitis; Z13.6 Encounter for screening for cardiovascular disorders; M81.0 Age-related osteoporosis without current pathological fracture; R94.31 Abnormal electrocardiogram [ECG] [EKG]
CPT/HCPCS: 36415; 77063; 77067; 78452; 80053; 80061; 82306; 85025; 93017; A9500; A4216; J2785